=== PATIENT | male | born 1935 | race Caucasian/White ===

== ENCOUNTER 2019-02-01 08:56 | Inpatient (IN) | payer MEDICARE ==
[2019-02-01] MEDS ORDERED: NITROGLYCERIN SL TABS 0.4 MG TAB SUBLINGUAL STA (09:28)
[2019-02-01] MEDS ORDERED: METOCLOPRAMIDE 5 MG/ML 2 ML VIAL IVP STA (09:28)
[2019-02-01] MEDS ORDERED: GLUCAGON 1 MG/ML VIAL IVP STA (09:29)
[2019-02-01] MEDS ORDERED: DIAZEPAM 5 MG/ML 2 ML INJ IVP STA (09:29)
--- NOTE | 2019-02-01 09:45 | XR ---
EXAMINATION TYPE: XR chest 2V DATE OF EXAM: 02/01/2019 COMPARISON: Chest x-ray December 04, 2015. HISTORY: Epigastric pain. Possible foreign body in esophagus. TECHNIQUE: Frontal and lateral views of the chest are obtained. FINDINGS: There is no new suspicious focal air space opacity, pleural effusion, or pneumothorax seen . Chronic left basilar horizontal opacity favoring scarring. The cardiac silhouette size remains with in normal limits. Some multilevel spurring in the thoracic spine. IMPRESSION: Chronic changes without acute pulmonary process.
--- NOTE | 2019-02-01 09:53 | ED ---
General Adult HPI - General Chief complaint: ENT Stated complaint: Not able swallow Time Seen by Provider: 02/01/19 09:03 Source: patient, RN notes reviewed Mode of arrival: ambulatory Limitations: no limitations - History of Present Illness Initial comments: 83-year-old male with a past medical history of GERD, hypertension, since to the emergency department for dysphagia. Patient states that he has had difficulty swallowing for about 2 years now. States he has been taking Pepcid because of this. However this worsened yesterday. States that since yesterday morning he has been unable to keep down any solids or liquids. States he can drink or have a glass of water and a feeling he gets stuck at the bottom of his esophagus. States that after a few minutes it all comes back up. Patient is unsure if there is a piece of food stuck in his throat. Patient does not remember getting a piece stuck in his throat. Pt denies any chest or abdominal pain. Denies nausea.Patient has no other complaints at this time including shortness of breath, chest pain, abdominal pain, nausea or vomiting, headache, or visual changes. - Related Data Home Medications Medication Instructions Recorded Confirmed Aspirin [Adult Low Dose Aspirin EC] 81 mg PO DAILY 12/03/15 02/01/19 Enalapril/Hydrochlorothiazide 1 tab PO QAM 12/03/15 02/01/19 [Vaseretic 10-25 mg] Multivitamins, Thera [Multivitamin] 1 tab PO DAILY 12/03/15 02/01/19 Primidone [Mysoline] 50 mg PO BID 12/03/15 02/01/19 Tamsulosin HCl [Flomax] 0.4 mg PO BID 12/03/15 02/01/19 Ranitidine HCl 300 mg PO HS 02/01/19 02/01/19 Allergies Allergy/AdvReac Type Severity Reaction Status Date / Time No Known Allergies Allergy Verified 02/01/19 11:20 Review of Systems ROS Statement: Those systems with pertinent positive or pertinent negative responses have been documented in the HPI. ROS Other: All systems not noted in ROS Statement are negative. Past Medical History Past Medical History: GERD/Reflux, Hypertension, Prostate Disorder Additional Past Medical History / Comment(s): TREMORS, HAND History of Any Multi-Drug Resistant Organisms: None Reported Past Surgical History: Joint Replacement Additional Past Surgical History / Comment(s): RIGHT TOTAL KNEE. BILATERAL CATARACTS, 10-5-16 LUMBAR LAMINECTOMY Past Anesthesia/Blood Transfusion Reactions: No Reported Reaction Past Psychological History: No Psychological Hx Reported Smoking Status: Never smoker Past Alcohol Use History: None Reported Past Drug Use History: None Reported - Past Family History Brother(s) Family Medical History: Cancer Father Family Medical History: Myocardial Infarction ([place]) Additional Family Medical History / Comment(s): AT AGE 53YR. Mother Additional Family Medical History / Comment(s): MOM WAS HEALTHY LIVED TILL AGE 99- FELL BROKE A HIP AND [place]ENT [place] . General Exam Limitations: no limitations General appearance: alert, in no apparent distress Head exam: Present: atraumatic, normocephalic, normal inspection Eye exam: Present: normal appearance, PERRL, EOMI. Absent: scleral icterus, conjunctival injection, periorbital swelling ENT exam: Present: normal exam, normal oropharynx (uvula midline, no evidence of FB in oropharynx), mucous membranes moist, TM's normal bilaterally, normal external ear exam Neck exam: Present: normal inspection, full ROM. Absent: tenderness, meningismus, lymphadenopathy Respiratory exam: Present: normal lung sounds bilaterally. Absent: respiratory distress, wheezes, rales, rhonchi, stridor Cardiovascular Exam: Present: regular rate, normal rhythm, normal heart sounds. Absent: systolic murmur, diastolic murmur, rubs, gallop, clicks GI/Abdominal exam: Present: soft, normal bowel sounds. Absent: distended, tenderness, guarding, rebound, rigid Course Vital Signs 02/01/19 08:57 Temperature 98.2 F Pulse Rate 72 Respiratory 16 Rate Blood Pressure 192/86 O2 Sat by Pulse 97 Oximetry Medical Decision Making - Medical Decision Making Chest x-ray shows chronic changes without acute pulmonary process.Patient was given sublingual nitro, Valium, glucagon, and Reglan. We then attempted to have him drink water again however he regurgitated this. It is unclear at this time this is an acute on chronic problem or if there is a food bolus. Patient would benefit from GI consult for possible EGD. patient will be admitted with GI consult and IV fluids. Case was discussed with Dr. Alejandro who recommends nothing by mouth, Protonix - Lab Data Result diagrams: 02/01/19 10:14 02/01/19 10:14 Lab Results 02/01/19 02/01/19 Range/Units 10:14 10:14 WBC 9.3 (3.8-10.6) k/uL RBC 5.26 (4.30-5.90) m/uL Hgb 16.4 (13.0-17.5) gm/dL Hct 48.1 (39.0-53.0) % MCV 91.5 (80.0-100.0) fL MCH 31.3 (25.0-35.0) pg MCHC 34.2 (31.0-37.0) g/dL RDW 12.0 (11.5-15.5) % Plt Count 274 (150-450) k/uL Neutrophils % 72 % Lymphocytes % 19 % Monocytes % 5 % Eosinophils % 1 % Basophils % 0 % Neutrophils # 6.7 (1.3-7.7) k/uL Lymphocytes # 1.8 (1.0-4.8) k/uL Monocytes # 0.5 (0-1.0) k/uL Eosinophils # 0.1 (0-0.7) k/uL Basophils # 0.0 (0-0.2) k/uL Sodium 140 (137-145) mmol/L Potassium 3.7 (3.5-5.1) mmol/L Chloride 101 (98-107) mmol/L Carbon Dioxide 28 (22-30) mmol/L Anion Gap 11 mmol/L BUN 22 H (9-20) mg/dL Creatinine 1.29 H (0.66-1.25) mg/dL Est GFR (CKD-EPI)AfAm 60 (>60 ml/min/1.73 sqM) Est GFR (CKD-EPI)NonAf 52 (>60 ml/min/1.73 sqM) Glucose 104 H (74-99) mg/dL Calcium 9.8 (8.4-10.2) mg/dL Total Bilirubin 0.9 (0.2-1.3) mg/dL AST 25 (17-59) U/L ALT 26 (21-72) U/L Alkaline Phosphatase 60 (38-126) U/L Total Protein 7.7 (6.3-8.2) g/dL Albumin 4.7 (3.5-5.0) g/dL Disposition Clinical Impression: Dysphagia Disposition: ADMITTED IP TO THIS HOSP Condition: Fair Is patient prescribed a controlled substance at d/c from ED?: No Referrals: Patience Mitchell MD [Primary Care Provider] - 1-2 days Time of Disposition: 11:39
[2019-02-01 10:23] LABS: Basophils % (A) 0 %; Eosinophils # (A) 0.1 k/uL (0-0.7); Eosinophils % (A) 1 %; HCT 48.1 % (39.0-53.0); HGB 16.4 gm/dL (13.0-17.5); Lymphocytes # (A) 1.8 k/uL (1.0-4.8); Lymphocytes % (A) 19 %; MCH 31.3 pg (25.0-35.0); MCHC 34.2 g/dL (31.0-37.0); MCV 91.5 fL (80.0-100.0); Monocytes # (A) 0.5 k/uL (0-1.0); Monocytes % (A) 5 %; Neutrophils # (A) 6.7 k/uL (1.3-7.7); Neutrophils % (A) 72 %; Platelet Count 274 k/uL (150-450); RBC 5.26 m/uL (4.30-5.90); WBC 9.3 k/uL (3.8-10.6)
[2019-02-01 10:33] LABS: Albumin 4.7 g/dL (3.5-5.0); Calcium 9.8 mg/dL (8.4-10.2); Potassium 3.7 mmol/L (3.5-5.1); Total Bilirubin 0.9 mg/dL (0.2-1.3); Total Protein 7.7 g/dL (6.3-8.2)
[2019-02-01] MEDS ORDERED: NALOXONE 0.4 MG/ML 1 ML VIAL IV PRN (11:58)
[2019-02-01] MEDS ORDERED: PANTOPRAZOLE 40 MG/10 ML VIAL IVP STA (11:59)
--- NOTE | 2019-02-01 12:25 | P.HPIM ---
History of Present Illness H&P Date: 02/01/19 Chief Complaint: Dysphagia This is an 83-year-old male patient of Dr. Mitchell.. Patient presented with complaints of dysphagia and trouble swallowing. Patient reports that he's been having this issue for over 2 years which at times he would have trouble swallowing was would resolve. Patient reports that yesterday he was carving turkey and took a couple small plates and was unable to swallow water and a feeling that food got stuck. Patient denies coughing. Patient does have a past medical history of prostate cancer in which he follows with urology services, GERD, hypertension and joint replacement. Chest x-ray was completed showing chronic changes without acute pulmonary process. At this time patient will be made nothing by mouth GI services consulted for meds on hold. Review of Systems Please refer to HPI otherwise unremarkable Past Medical History Past Medical History: GERD/Reflux, Hypertension, Prostate Disorder Additional Past Medical History / Comment(s): TREMORS, HAND History of Any Multi-Drug Resistant Organisms: None Reported Past Surgical History: Joint Replacement Additional Past Surgical History / Comment(s): RIGHT TOTAL KNEE. BILATERAL CATARACTS, 10--16 LUMBAR LAMINECTOMY Past Anesthesia/Blood Transfusion Reactions: No Reported Reaction Past Psychological History: No Psychological Hx Reported Smoking Status: Never smoker Past Alcohol Use History: None Reported Past Drug Use History: None Reported - Past Family History Brother(s) Family Medical History: Cancer Father Family Medical History: Myocardial Infarction ([place]) Additional Family Medical History / Comment(s): AT AGE 53YR. Mother Additional Family Medical History / Comment(s): MOM WAS HEALTHY LIVED TILL AGE 99- FELL BROKE A HIP AND [place] . Medications and Allergies Home Medications Medication Instructions Recorded Confirmed Type Aspirin [Adult Low Dose Aspirin EC] 81 mg PO DAILY 12/03/15 02/01/19 History Enalapril/Hydrochlorothiazide 1 tab PO QAM 12/03/15 02/01/19 History [Vaseretic 10-25 mg] Multivitamins, Thera [Multivitamin] 1 tab PO DAILY 12/03/15 02/01/19 History Primidone [Mysoline] 50 mg PO BID 12/03/15 02/01/19 History Tamsulosin HCl [Flomax] 0.4 mg PO BID 12/03/15 02/01/19 History Ranitidine HCl 300 mg PO HS 02/01/19 02/01/19 History Allergies Allergy/AdvReac Type Severity Reaction Status Date / Time No Known Allergies Allergy Verified 02/01/19 11:20 Physical Exam Vitals: Vital Signs Temp Pulse Resp BP Pulse Ox 02/01/19 08:57 98.2 F 72 16 192/86 97 Intake and Output 01/31/19 02/01/19 02/01/19 22:59 06:59 14:59 Other: Weight 81.647 kg Head normocephalic Neck supple Lungs clear to auscultation bilaterally no wheezing or crackles Heart regular rate and rhythm S1-S2, no rub or gallop Abdomen is soft nontender nondistended positive bowel sounds no hepatosplenomegaly Extremities no edema Neuro alert and orientated to 3 Results CBC & Chem 7: 02/01/19 10:14 02/01/19 10:14 Labs: Abnormal Lab Results - Last 24 Hours (Table) 02/01/19 Range/Units 10:14 BUN 22 H (9-20) mg/dL Creatinine 1.29 H (0.66-1.25) mg/dL Glucose 104 H (74-99) mg/dL Assessment and Plan Assessment: 1. Dysphagia. Patient made nothing by mouth. GI service is consulted. Chest x-ray completed showing chronic changes without acute pulmonary process 2. History of essential hypertension. Home is on hold due to dysphagia. Hydralazine when necessary has been added 3. History of prostate cancer. Patient follows with urology services 4. History of bilateral knee replacement 5. History of lumbar laminectomy 6. History of GERD DVT prophylaxis heparin. GI prophylaxis Protonix Time with Patient: Greater than 30 (Greater than 60% of the total time spent in counseling and coordination of care. I performed an examination of the patient and discussed their management with the Nurse Practitioner. I have reviewed the Nurse Practitioner's notes and agree with the documented findings and plan of care)
[2019-02-01] MEDS: SODIUM CHLORIDE 0.9% 1,000 ML IV SCH ×2 (12:57→20:21)
[2019-02-01] MEDS: HEPARIN SODIUM,PORCINE 5,000 UNIT/ML 1 ML VIAL SQ SCH (20:21)
[2019-02-02 07:06] LABS: Basophils % (A) 0 %; Eosinophils # (A) 0.1 k/uL (0-0.7); Eosinophils % (A) 1 %; HCT 42.5 % (39.0-53.0); HGB 14.4 gm/dL (13.0-17.5); Lymphocytes # (A) 1.4 k/uL (1.0-4.8); Lymphocytes % (A) 15 %; MCH 31.6 pg (25.0-35.0); MCHC 33.9 g/dL (31.0-37.0); MCV 93.2 fL (80.0-100.0); Mean Platelet Volume 7.1; Monocytes # (A) 0.5 k/uL (0-1.0); Monocytes % (A) 6 %; Neutrophils # (A) 6.7 k/uL (1.3-7.7); Neutrophils % (A) 75 %; Platelet Count 229 k/uL (150-450); RBC 4.56 m/uL (4.30-5.90); RDW 12.2 % (11.5-15.5)
[2019-02-02 07:23] LABS: Albumin 3.4 g/dL (3.5-5.0); Calcium 8.4 mg/dL (8.4-10.2); Potassium 3.5 mmol/L (3.5-5.1); Total Bilirubin 0.9 mg/dL (0.2-1.3); Total Protein 5.8 g/dL (6.3-8.2)
[2019-02-02] MEDS: HEPARIN SODIUM,PORCINE 5,000 UNIT/ML 1 ML VIAL SQ SCH ×2 (08:21→20:51)
[2019-02-02] MEDS: SODIUM CHLORIDE 0.9% 1,000 ML IV SCH ×2 (08:22→20:54)
[2019-02-02] MEDS ORDERED: PANTOPRAZOLE 40 MG/10 ML VIAL IVP SCH (09:00)
--- NOTE | 2019-02-02 09:44 | P.PN ---
Subjective Progress Note Date: 02/02/19 Principal diagnosis: Dysphagia acute on chronic, hypertension hypertensive cardiovascular disease, prostate cancer, degenerative joint disease osteoarthritis, GERD 02/02/2019, patient seen and evaluated examined during the rounds, still have ongoing dysphagia, GI services has been consulted, patient is on Protonix, blood pressure is stable, oxygen saturation 94% room air Objective - Vital Signs Vital signs: Vital Signs Temp 97.8 F 02/02/19 07:00 Pulse 63 02/02/19 07:00 Resp 16 02/02/19 07:00 BP 147/77 02/02/19 07:00 Pulse Ox 94 L 02/02/19 07:00 Intake & Output 02/01/19 02/02/19 02/02/19 18:59 06:59 18:59 Weight 81.647 kg Other: Voiding Method Toilet Toilet # Voids 1 - Constitutional General appearance: Present: average body habitus, cooperative, disheveled, no acute distress - EENT Eyes: Present: EOMI, PERRLA, poor dentition ENT: Present: normal oropharynx Ears: bilateral: normal - Neck Neck: Present: normal ROM Carotids: bilateral: upstroke normal Thyroid: bilateral: normal size - Respiratory Respiratory: bilateral: CTA - Cardiovascular Rhythm: regular Heart sounds: normal: S1, S2 - Gastrointestinal General gastrointestinal: Present: decreased bowel sounds, normal bowel sounds, soft - Neurologic Neurologic: Present: CNII-XII intact - Musculoskeletal Musculoskeletal: Present: gait normal, generalized weakness, strength equal bilaterally - Psychiatric Psychiatric: Present: A&O x's 3, appropriate affect, intact judgment & insight - Labs CBC & Chem 7: 02/02/19 06:33 02/02/19 06:33 Labs: Abnormal Lab Results - Last 24 Hours (Table) 02/01/19 02/02/19 Range/Units 10:14 06:33 Chloride 108 H (98-107) mmol/L BUN 22 H (9-20) mg/dL Creatinine 1.29 H (0.66-1.25) mg/dL Glucose 104 H (74-99) mg/dL Total Protein 5.8 L (6.3-8.2) g/dL Albumin 3.4 L (3.5-5.0) g/dL Assessment and Plan Assessment: Dysphagia Hypertension Prostate cancer Osteoarthritis status post lumbar leg laminectomy and bilateral knee arthroplasty GERD Plan: Continue gentle rehydration Continue Protonix Awaiting evaluation by GI services, patient probably will be having endoscopy We'll follow closely clinical course, labs are pending Time with Patient: Greater than 30
[2019-02-02] MEDS: hydrALAZINE HCL 20 MG/ML 1 ML VIAL IVP PRN (14:02)
--- NOTE | 2019-02-02 23:03 | P.CONS ---
History of Present Illness - Reason for Consult Consult date: 02/02/19 Dysphagia Requesting physician: Lana Alejandro - Chief Complaint Difficulty swallowing - History of Present Illness 83-year-old male with a past medical history significant for prostate cancer, reflux disease, and hypertension who presented to the hospital with concerns over difficulty swallowing. The patient reports that his symptoms have been chronic over the past 2 years. He reports intermittent episodes of dysphagia both to solids and liquids where he has problems swallowing. Currently he feels that symptoms are occurring approximately every 2-3 weeks that this is more frequent than previously. He is currently on treatment with ranitidine 300 mg at night. She denies frequent reflux and states that his predominant symptoms are that of dysphagia. No prior EGD or colonoscopy reported. Currently he is reporting that he is feeling somewhat improved and able to tolerate his secretions. Review of Systems REVIEW OF SYSTEMS: CONSTITUTIONAL: Denies any fevers, chills, weight change or fatigue. CARDIOVASCULAR: Denies any chest pain, palpitations high or low blood pressures RESPIRATORY: Denies any shortness of breath, hemoptysis or cough. GENITOURINARY: No dysuria or hematuria. MUSCULOSKELETAL: No weakness reported. SKIN: Denies any new rashes or lesions, jaundice or pallor. PSYCHIATRIC: Denies any depression or anxiety. NEUROLOGY: Denies headache, denies any new focal deficits. EARS/NOSE/THROAT: No recent hearing change, congestion, nasal discharge or sore throat. EYES: No pain in eyes, discharge or change in vision. GASTROINTESTINAL: As per HPI. 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 History of Any Multi-Drug Resistant Organisms: None Reported Past Surgical History: Back Surgery, Joint Replacement, Orthopedic Surgery Additional Past Surgical History / Comment(s): R total knee arthroplasty, L5 lumbar laminectomy/discectomy, skin cancer removed R cheondoism area, bilateral cataract removals/lens implants. Past Anesthesia/Blood Transfusion Reactions: No Reported Reaction Smoking Status: Never smoker - Past Family History Brother(s) Family Medical History: Cancer Father Family Medical History: Myocardial Infarction ([place]) Additional Family Medical History / Comment(s): AT AGE 53YR from a [place]. Mother Additional Family Medical History / Comment(s): MOM WAS HEALTHY LIVED TILL AGE 99- FELL BROKE A HIP AND [place] . Medications and Allergies Home Medications Medication Instructions Recorded Confirmed Type Aspirin [Adult Low Dose Aspirin EC] 81 mg PO DAILY 12/03/15 02/01/19 History Enalapril/Hydrochlorothiazide 1 tab PO QAM 12/03/15 02/01/19 History [Vaseretic 10-25 mg] Multivitamins, Thera [Multivitamin] 1 tab PO DAILY 12/03/15 02/01/19 History Primidone [Mysoline] 50 mg PO BID 12/03/15 02/01/19 History Tamsulosin HCl [Flomax] 0.4 mg PO BID 12/03/15 02/01/19 History Ranitidine HCl 300 mg PO HS 02/01/19 02/01/19 History Allergies Allergy/AdvReac Type Severity Reaction Status Date / Time No Known Allergies Allergy Verified 02/01/19 11:20 Physical Exam Vitals: Vital Signs Temp Pulse Resp BP Pulse Ox 02/02/19 19:45 16 02/02/19 18:45 97.5 F L 77 166/73 95 02/02/19 14:30 97.6 F 68 16 176/76 96 02/02/19 07:00 97.8 F 63 16 147/77 94 L 02/02/19 01:03 97.8 F 16 116/61 95 02/02/19 00:15 16 Intake and Output 02/02/19 02/02/19 02/02/19 06:59 14:59 22:59 Intake Total 600 Balance 600 Intake: Intake, IV Titration 600 Amount Sodium Chloride 0.9% 1, 600 000 ml @ 100 mls/hr IV . Q10H [facility] Rx#:[id number] Other: Voiding Method Toilet Toilet # Voids 1 3 On physical examination, patient appears comfortable in no apparent distress. HEAD: Normocephalic, atraumatic. EYES: No scleral icterus. No conjunctival injection. MOUTH: No lesions, tongue midline. NECK: Trachea midline, no gross abnormalities. CHEST: Clear to auscultation with no wheezing or rhonchi appreciated. HEART: S1-S2 appreciated, no murmurs appreciated. ABDOMEN: Soft. Bowel sounds are positive. No organomegaly. No guarding or rigidity. EXTREMITIES: No pedal edema. SKIN: No rashes, no jaundice. NEUROLOGIC: Alert and oriented x3. No focal deficits. Results CBC & Chem 7: 02/02/19 06:33 02/02/19 06:33 Labs: Abnormal Lab Results - Last 24 Hours (Table) 02/02/19 Range/Units 06:33 Chloride 108 H (98-107) mmol/L Total Protein 5.8 L (6.3-8.2) g/dL Albumin 3.4 L (3.5-5.0) g/dL Chest x-ray: report reviewed (Chronic changes without any acute process seen on chest x-ray.) Assessment and Plan (1) Dysphagia Narrative/Plan: A 3-year-old male who presents with reports of intermittent dysphagia to both solids and liquids over the past 2 years which has increased in frequency. Unknown etiology may represent esophagitis, stricture, motility issue or other etiology. Current Visit: Yes Status: Acute Code(s): R13.10 - DYSPHAGIA, UNSPECIFIED SNOMED Code(s): 11208992 (2) GERD (gastroesophageal reflux disease) Current Visit: Yes Status: Acute Code(s): K21.9 - GASTRO-ESOPHAGEAL REFLUX DISEASE WITHOUT ESOPHAGITIS SNOMED Code(s): 656325426 Plan: Supportive care Clear liquid diet Nothing by mouth after midnight Plan for EGD tomorrow Protonix increased to 40 mg twice a day Continue to monitor her symptomatically Other medical management per primary team Thank you for allowing us to participate in the care of this patient we will continue to follow
[2019-02-03] MEDS: SODIUM CHLORIDE 0.9% 1,000 ML IV SCH ×3 (03:05→20:48)
[2019-02-03 07:44] LABS: Basophils % (A) 0 %; Eosinophils # (A) 0.1 k/uL (0-0.7); Eosinophils % (A) 1 %; HCT 42.9 % (39.0-53.0); HGB 14.4 gm/dL (13.0-17.5); Lymphocytes # (A) 1.3 k/uL (1.0-4.8); Lymphocytes % (A) 17 %; MCH 31.2 pg (25.0-35.0); MCHC 33.6 g/dL (31.0-37.0); MCV 92.7 fL (80.0-100.0); Mean Platelet Volume 7.2; Monocytes # (A) 0.5 k/uL (0-1.0); Monocytes % (A) 6 %; Neutrophils # (A) 5.4 k/uL (1.3-7.7); Neutrophils % (A) 72 %; Platelet Count 251 k/uL (150-450); RBC 4.63 m/uL (4.30-5.90); WBC 7.5 k/uL (3.8-10.6)
[2019-02-03 07:52] LABS: Albumin 3.6 g/dL (3.5-5.0); Calcium 8.5 mg/dL (8.4-10.2); Potassium 3.4 mmol/L (3.5-5.1); Total Bilirubin 1.1 mg/dL (0.2-1.3); Total Protein 6.1 g/dL (6.3-8.2)
[2019-02-03] MEDS: HEPARIN SODIUM,PORCINE 5,000 UNIT/ML 1 ML VIAL SQ SCH ×2 (07:59→19:34)
[2019-02-03] MEDS: hydrALAZINE HCL 20 MG/ML 1 ML VIAL IVP PRN (08:01)
[2019-02-03] MEDS ORDERED: PROPOFOL 10 MG/ML 20 ML VIAL IV ONE (08:49)
[2019-02-03] MEDS ORDERED: IV FLUID CONTINUATION 1,000 ML IV ONE (08:50)
[2019-02-03] MEDS ORDERED: PANTOPRAZOLE 40 MG/10 ML VIAL IVP SCH (09:00)
--- NOTE | 2019-02-03 09:16 | P.PCN ---
Date of Procedure: 02/03/19 Description of Procedure: BRIEF HISTORY: 83-year-old male with a past medical history significant for prostate cancer, reflux disease, and hypertension who presented to the hospital with concerns over difficulty swallowing. The patient reports that his symptoms have been chronic over the past 2 years. He reports intermittent episodes of dysphagia both to solids and liquids where he has problems swallowing. Currently he feels that symptoms are occurring approximately every 2-3 weeks that this is more frequent than previously. He is currently on treatment with ranitidine 300 mg at night. She denies frequent reflux and states that his predominant symptoms are that of dysphagia. No prior EGD or colonoscopy reported. Currently he is reporting that he is feeling somewhat improved and able to tolerate his secretions. PROCEDURE PERFORMED: Esophagogastroduodenoscopy with biopsy. PREOPERATIVE DIAGNOSIS: Esophageal dysphagia. ESTIMATED BLOOD LOSS: Minimal. IV sedation per anesthesia. PROCEDURE: After informed consent was obtained, the patient was brought into the endoscopy unit. IV sedation was administered by Anesthesia under continuous monitoring. Initially the Olympus GIF-190 video endoscope was inserted into the mouth. Esophagus intubated without any difficulty. It was gradually advanced into the stomach and duodenum and carefully examined. The bulb and the second part of the duodenum appeared normal, with biopsies taken. The scope at this time was withdrawn to the stomach, adequately insufflated with air, and upon careful examination, mucosa of the antrum, body, cardia and the fundus appeared normal, except for some mild scattered punctate erythema in the antrum and body suggestive of mild gastritis with biopsies of the antrum and body taken. The scope was then withdrawn into the esophagus. The GE junction was located at 42 cm from the incisors with minimal erythematous irritation in the distal esophagus consistent with LA grade a distal esophagitis with biopsies of the GE junction taken. The esophagus otherwise appeared normal with mid esophageal biopsies taken to rule out eosinophilic esophagitis. There were no erosions or ulcerations seen and the patient tolerated the procedure well. IMPRESSION: 1. Mild gastritis antrum and body, biopsied. 2. LA grade a distal esophagitis, biopsies of the GE junction taken. 3. Biopsies of the duodenum and midesophagus. RECOMMENDATIONS: The findings of this examination were discussed with the patient. Okay to resume diet. Okay to resume medications. Would recommend discharging patient on a trial of twice daily PPI therapy. If patient continues to have symptoms would recommend outpatient follow-up for esophageal manometry. Otherwise patient is okay from gastroenterology standpoint for discharge.
--- NOTE | 2019-02-03 09:52 | P.PN ---
Subjective Progress Note Date: 02/03/19 Principal diagnosis: Dysphagia acute on chronic, hypertension hypertensive cardiovascular disease, prostate cancer, degenerative joint disease osteoarthritis, GERD 02/03/2019, patient seen eval examined during the rounds he is nothing by mouth for the procedure endoscopy, dysphagia appears to have improved patient able to swallow liquids now at the time of dictation endoscopy was finished some gastritis and esophagitis were noted biopsies were obtained 02/02/2019, patient seen and evaluated examined during the rounds, still have ongoing dysphagia, GI services has been consulted, patient is on Protonix, blood pressure is stable, oxygen saturation 94% room air Objective - Vital Signs Vital signs: Vital Signs Temp 98.5 F 02/03/19 09:22 Pulse 75 02/03/19 09:22 Resp 16 02/03/19 09:22 BP 163/74 02/03/19 09:22 Pulse Ox 96 02/03/19 09:22 Intake & Output 02/02/19 02/03/19 02/03/19 18:59 06:59 18:59 Intake Total 600 50 Balance 600 50 Intake: IV 50 Intake, IV Titration 600 Amount Sodium Chloride 0.9% 1, 600 000 ml @ 100 mls/hr IV . Q10H [facility] Rx#:[id number] Other: Voiding Method Toilet # Voids 3 1 - Exam - Constitutional General appearance: Present: average body habitus, cooperative, disheveled, no acute distress - EENT Eyes: Present: EOMI, PERRLA, poor dentition ENT: Present: normal oropharynx Ears: bilateral: normal - Neck Neck: Present: normal ROM Carotids: bilateral: upstroke normal Thyroid: bilateral: normal size - Respiratory Respiratory: bilateral: CTA - Cardiovascular Rhythm: regular Heart sounds: normal: S1, S2 - Gastrointestinal General gastrointestinal: Present: decreased bowel sounds, normal bowel sounds, soft - Neurologic Neurologic: Present: CNII-XII intact - Musculoskeletal Musculoskeletal: Present: gait normal, generalized weakness, strength equal bilaterally - Psychiatric Psychiatric: Present: A&O x's 3, appropriate affect, intact judgment & insight - Labs CBC & Chem 7: 02/03/19 06:29 02/03/19 06:29 Labs: Abnormal Lab Results - Last 24 Hours (Table) 02/03/19 Range/Units 06:29 Potassium 3.4 L (3.5-5.1) mmol/L Chloride 109 H (98-107) mmol/L Total Protein 6.1 L (6.3-8.2) g/dL Assessment and Plan Assessment: Dysphagia Hypertension Prostate cancer Osteoarthritis status post lumbar leg laminectomy and bilateral knee arthro plasty GERD Plan: Status post endoscopy and biopsy of esophagus and stomach results pending Continue gentle rehydration Continue Protonix Awaiting evaluation by GI services, patient probably will be having endoscopy We'll follow closely clinical course, labs are pending On clear liquid diet and advance as tolerated as per GI If remains stable possible discharge in next 24-48 hours Time with Patient: Greater than 30
[2019-02-03] MEDS: PANTOPRAZOLE 40 MG TABLET PO SCH (16:54)
[2019-02-04 07:00] LABS: Basophils % (A) 1 %; Eosinophils # (A) 0.2 k/uL (0-0.7); Eosinophils % (A) 2 %; HCT 41.9 % (39.0-53.0); HGB 14.4 gm/dL (13.0-17.5); Lymphocytes # (A) 1.5 k/uL (1.0-4.8); Lymphocytes % (A) 20 %; MCH 31.6 pg (25.0-35.0); MCHC 34.4 g/dL (31.0-37.0); MCV 91.9 fL (80.0-100.0); Monocytes # (A) 0.5 k/uL (0-1.0); Monocytes % (A) 6 %; Neutrophils # (A) 5.1 k/uL (1.3-7.7); Neutrophils % (A) 68 %; Platelet Count 235 k/uL (150-450); RBC 4.56 m/uL (4.30-5.90); RDW 12.1 % (11.5-15.5); WBC 7.5 k/uL (3.8-10.6)
[2019-02-04] MEDS: PANTOPRAZOLE 40 MG TABLET PO SCH (07:25)
[2019-02-04] MEDS: HEPARIN SODIUM,PORCINE 5,000 UNIT/ML 1 ML VIAL SQ SCH (07:25)
[2019-02-04] MEDS: SODIUM CHLORIDE 0.9% 1,000 ML IV SCH (07:27)
[2019-02-04 07:36] LABS: Albumin 3.6 g/dL (3.5-5.0); Calcium 8.9 mg/dL (8.4-10.2); Potassium 3.5 mmol/L (3.5-5.1); Total Protein 6.1 g/dL (6.3-8.2)
[2019-02-04 08:12] VITALS: BP 176/75; PULSE 96; RESP 18; TEMP 98.2
[2019-02-04] MEDS ORDERED: LISINOPRIL-HCTZ 20-25 MG 1 EACH TAB PO SCH (09:00)
[2019-02-04] MEDS ORDERED: TAMSULOSIN 0.4 MG CAP.ER.24H PO SCH (09:00)
--- NOTE | 2019-02-04 10:41 | P.DS ---
Providers Date of admission: 02/03/19 13:37 Expected date of discharge: 02/04/19 Attending physician: Lana Alejandro Consults: 02/01/19 11:58 Consult Physician Routine Consulting Provider: Joce Manuel Reason/Comments: dysphagia Do you want consulting provider notified?: Yes Primary care physician: Patience Mtichell Hospital Course: Discharge diagnosis 1. Dysphagia. Patient made nothing by mouth. GI service is consulted. Chest x-ray completed showing chronic changes without acute pulmonary process. Status post EGD with GI services showing mild gastritis antrum and body biopsy. LA grade a distal esophagitis biopsy GI junction taken biopsies of the duodenal and mid esophagus. Patient has been cleared for discharge from GI services okay to resume diet patient has been tolerating regular diet patient will be discharged on Protonix twice daily. If patient continues to have symptoms and recommended outpatient follow-up for esophageal manometry 2. History of essential hypertension. Home is on hold due to dysphagia. Hydralazine when necessary has been added 3. History of prostate cancer. Patient follows with urology services 4. History of bilateral knee replacement 5. History of lumbar laminectomy 6. History of GERD 7. Acute kidney injury secondary to dehydration. Continue normal saline at 100. Creatinine slightly elevated 1.29. resolved. Hospital course This is an 83-year-old male patient of Dr. Mitchell.. Patient presented with complaints of dysphagia and trouble swallowing. Patient reports that he's been having this issue for over 2 years which at times he would have trouble swallowing was would resolve. Patient reports that yesterday he was carving turkey and took a couple small plates and was unable to swallow water and a feeling that food got stuck. Patient denies coughing. Patient does have a past medical history of prostate cancer in which he follows with urology services, GERD, hypertension and joint replacement. Chest x-ray was completed showing chronic changes without acute pulmonary process. At this time patient will be made nothing by mouth GI services consulted for meds on hold. 02/02/2019, patient seen and evaluated examined during the rounds, still have ongoing dysphagia, GI services has been consulted, patient is on Protonix, blood pressure is stable, oxygen saturation 94% room air 02/03/2019, patient seen eval examined during the rounds he is nothing by mouth for the procedure endoscopy, dysphagia appears to have improved patient able to swallow liquids now at the time of dictation endoscopy was finished some gastritis and esophagitis were noted biopsies were obtained On 02/04/2019 patient is alert and oriented 3. Patient has been tolerating diet no issues with swallowing. Status post EGD. Per GI services patient to be discharged on Protonix twice daily if patient continues have symptoms recommend further workup outpatient. Acute kidney injury has resolved. At this time patient denies chest pain or shortness of breath. Patient denies nausea vomiting or diarrhea. Patient denies any urinary burning or frequency I performed an examination of the patient and discussed their management with the Nurse Practitioner. I have reviewed the Nurse Practitioner's notes and agree with the documented findings and plan of care Patient Condition at Discharge: Stable Plan - Discharge Summary Discharge Rx Participant: No New Discharge Prescriptions: New Pantoprazole Sodium [Protonix] 40 mg PO BID-W/MEALS #60 tablet. Continue Aspirin [Adult Low Dose Aspirin EC] 81 mg PO DAILY Enalapril/Hydrochlorothiazide [Vaseretic 10-25 mg] 1 tab PO QAM Multivitamins, Thera [Multivitamin (formulary)] 1 tab PO DAILY Primidone [Mysoline] 50 mg PO BID Tamsulosin HCl [Flomax] 0.4 mg PO BID Discontinued Ranitidine HCl 300 mg PO HS Discharge Medication List Aspirin [Adult Low Dose Aspirin EC] 81 mg PO DAILY 12/03/15 [History] Enalapril/Hydrochlorothiazide [Vaseretic 10-25 mg] 1 tab PO QAM 12/03/15 [History] Multivitamins, Thera [Multivitamin (formulary)] 1 tab PO DAILY 12/03/15 [History] Primidone [Mysoline] 50 mg PO BID 12/03/15 [History] Tamsulosin HCl [Flomax] 0.4 mg PO BID 12/03/15 [History] Pantoprazole Sodium [Protonix] 40 mg PO BID-W/MEALS #60 tablet. 02/03/19 [Rx] Follow up Appointment(s)/Referral(s): Patience Mitchell MD [Primary Care Provider] - 1-2 days Joce Manuel MD [STAFF PHYSICIAN] - 1 Week Patient Instructions/Handouts: Gastritis (ED), Esophagitis (ED) Discharge Disposition: HOME SELF-CARE
== END 2019-02-04 11:56 | disposition home or self-care (01) | DRG 392 ==
LOC: EC 08:56 → 4SSUR 12:14 → OBSVTOIN 02-03 13:37
PROVIDERS: ADMIT Internal Medicine; ATTEND Internal Medicine
PROC: 0DB78ZX Excision of Stomach, Pylorus, Via Natural or Artificial Opening Endoscopic, Diagnostic (ICD-10-PCS; 2019-02-03)
PROC: 0DB28ZX Excision of Middle Esophagus, Via Natural or Artificial Opening Endoscopic, Diagnostic (ICD-10-PCS; 2019-02-03)
PROC: 0DB48ZX Excision of Esophagogastric Junction, Via Natural or Artificial Opening Endoscopic, Diagnostic (ICD-10-PCS; 2019-02-03)
PROC: 0DB98ZX Excision of Duodenum, Via Natural or Artificial Opening Endoscopic, Diagnostic (ICD-10-PCS; principal; 2019-02-03 11:00)
DX: R13.14 Dysphagia, pharyngoesophageal phase (principal); N17.9 Acute kidney failure, unspecified; C61 Malignant neoplasm of prostate; E86.0 Dehydration; I11.9 Hypertensive heart disease without heart failure; K21.0 Gastro-esophageal reflux disease with esophagitis; K29.70 Gastritis, unspecified, without bleeding; M15.9 Polyosteoarthritis, unspecified; N40.0 Benign prostatic hyperplasia without lower urinary tract symptoms; Z79.82 Long term (current) use of aspirin; Z79.899 Other long term (current) drug therapy; Z82.49 Family history of ischemic heart disease and other diseases of the circulatory system; Z85.46 Personal history of malignant neoplasm of prostate; Z85.828 Personal history of other malignant neoplasm of skin; Z98.42 Cataract extraction status, left eye; Z98.41 Cataract extraction status, right eye; Z96.1 Presence of intraocular lens; Z96.653 Presence of artificial knee joint, bilateral; R25.1 Tremor, unspecified; I25.2 Old myocardial infarction
CPT/HCPCS: 36415; 43239; 71046; 80053; 85025; 88305; 88312; 96374; 96375; 99285

== ENCOUNTER → 2020-03-21 | Outpatient (CLI) | payer MEDICARE ==
--- NOTE | 2020-03-22 15:43 | MR ---
EXAMINATION TYPE: MR iac wo/w con DATE OF EXAM: 03/21/2020 COMPARISON: HISTORY: Tinnitus and hearing loss. TECHNIQUE: Multiplanar, multisequence images of the brain and brainstem is performed without and with IV contras t, utilizing 8.5 mL intravenous Gadavist, small ojgbv-cd-imzc high-resolution images obtained through the internal auditory canals . FINDINGS: Diffusion weighted images demonstrate no evidence of a recent infarct or other diffusion ab normality. There is no extra-axial fluid collection, periventricular confluent and scattered subcort ical hyperintensities are present on inversion recovery T2-weighted sequences. The ventricular syste m and cisternal spaces are normal in size and appearance. The brain volume is age appropriate, there is cortical atrophy. Midline structures demonstrate normal morphology. The craniocervical junction appears within normal limits. Post contrast images demonstrate no abnormal enhancement. The dural venous sinuses appear pa tent. The visualized sinuses are clear and the globes are intact. IMPRESSION: Age-related atrophy and chronic small vessel ischemia
== END | disposition home or self-care (01) ==
LOC: RADMRIMAIN 08:10
PROVIDERS: ATTEND Otolaryngology
DX: I67.82 Cerebral ischemia (principal); G31.9 Degenerative disease of nervous system, unspecified; H91.90 Unspecified hearing loss, unspecified ear; H93.19 Tinnitus, unspecified ear
CPT/HCPCS: 70553; A9585

== ENCOUNTER 2020-06-02 08:36 | Day surgery (SDC) | payer MEDICARE ==
[2020-05-29 08:45] VITALS: BMI 29.7
[~2020-06-02 08:36] MED LIST: LACTATED RINGERS 1,000 ML IV SCH; LIDOCAINE 1% (10MG/ML) FOR IV START INTRADERMA PRN
[2020-06-02 09:29] VITALS: TEMP 97.3
[2020-06-02] MEDS ORDERED: LIDOCAINE 1% INJ 10MG/ML (20 ML MDV) ONE (09:55)
[2020-06-02] MEDS ORDERED: PROPOFOL 10 MG/ML 20 ML VIAL IV ONE (09:55)
--- NOTE | 2020-06-02 10:29 | P.PCN ---
Date of Procedure: 06/02/20 Description of Procedure: BRIEF HISTORY: Patient is a 84-year-old male presenting for outpatient esophagogastroduodenoscopy for evaluation of GERD with esophagitis. Patient had been seen in the hospital with complaints of difficulty swallowing. Taken for EGD on 02/01/2019 the patient was found to have mild gastritis, esophagitis. Patient had done well on Protonix therapy but had an ALLERGY to medication. Currently on famotidine therapy. PROCEDURE PERFORMED: Esophagogastroduodenoscopy with biopsy and vcdanop-fow-sptrq balloon dilation of the esophagus. PREOPERATIVE DIAGNOSIS: GERD with esophagitis, esophageal dysphagia. ESTIMATED BLOOD LOSS: Minimal. IV sedation per anesthesia. PROCEDURE: After informed consent was obtained, the patient was brought into the endoscopy unit. IV sedation was administered by Anesthesia under continuous monitoring. Initially the Olympus GIF-190 video endoscope was inserted into the mouth. Esophagus intubated without any difficulty. It was gradually advanced into the stomach and duodenum and carefully examined. The bulb and the second part of the duodenum appeared normal, with biopsies taken. The scope at this time was withdrawn to the stomach, adequately insufflated with air, and upon careful examination, mucosa of the antrum, body, cardia and the fundus appeared normal, with biopsies taken. The scope was then withdrawn into the esophagus. The GE junction was located at 41 cm from the incisors, with a 1 cm hiatal hernia noted and a nonobstructing distal esophageal Schatzki's ring just proximal to the GE junction which was dilated with a ogaavcr-dux-lblcy balloon dilator to 15 mm and then 16.5 mm at which time no further dilation was performed as superficial mucosal tearing was noted. The esophagus appeared normal, with biopsies of the lower esophagus. There were no erosions or ulcerations seen and the patient t olerated the procedure well. IMPRESSION: 1. Nonobstructing distal esophageal Schatzki's ring dilated with ghpkivt-nmt-xdknb balloon dilator. 2. Small hiatal hernia. 3. Biopsies of the duodenum, antrum body and lower esophagus. RECOMMENDATIONS: The findings of this examination were discussed with the patient and his family. Okay to resume diet. Okay to resume medications. Await pathology from biopsies. Follow up in the GI clinic as scheduled. Continue famotidine therapy.
[2020-06-02 10:42] VITALS: BP 146/90; PULSE 65; RESP 18
== END 2020-06-02 11:14 | disposition home or self-care (01) ==
LOC: ORWHC2ENDO 08:36
PROVIDERS: ATTEND Internal Medicine
DX: K22.2 Esophageal obstruction (principal); K44.9 Diaphragmatic hernia without obstruction or gangrene; K21.00 Gastro-esophageal reflux disease with esophagitis, without bleeding; Z98.42 Cataract extraction status, left eye; Z98.41 Cataract extraction status, right eye; I10 Essential (primary) hypertension; Z97.2 Presence of dental prosthetic device (complete) (partial); Z79.82 Long term (current) use of aspirin; Z79.899 Other long term (current) drug therapy; Z88.8 Allergy status to other drugs, medicaments and biological substances
CPT/HCPCS: 88305; 43239; 43249; J2001; J2704; C1726

== ENCOUNTER 2021-07-04 23:19 | Emergency (ER) | payer MEDICARE ==
[2021-07-05] VITALS: TEMP 98.5
[2021-07-05] MEDS ORDERED: SODIUM CHLORIDE 0.9% 500 ML 500 ML IV STA (01:06)
--- NOTE | 2021-07-05 01:38 | XR ---
EXAMINATION TYPE: XR chest 2V DATE OF EXAM: 07/05/2021 COMPARISON: 02/01/2019 HISTORY: Difficulty swallowing TECHNIQUE: 2 views FINDINGS: Heart is normal. There is poor inspiration. Lungs are clear of infiltrate. No heart failure . No pleural effusion. IMPRESSION: Poor inspiration that is decreased compared to old exam. Normal heart.
[2021-07-05 01:43] LABS: Basophils # (A) 0.1 k/uL (0-0.2); Basophils % (A) 1 %; Eosinophils # (A) 0.1 k/uL (0-0.7); Eosinophils % (A) 1 %; HCT 48.9 % (39.0-53.0); Lymphocytes # (A) 1.5 k/uL (1.0-4.8); Lymphocytes % (A) 15 %; MCH 32.6 pg (25.0-35.0); MCHC 34.8 g/dL (31.0-37.0); MCV 93.8 fL (80.0-100.0); Mean Platelet Volume 7.6; Monocytes # (A) 0.5 k/uL (0-1.0); Monocytes % (A) 5 %; Neutrophils # (A) 7.9 k/uL (1.3-7.7); Neutrophils % (A) 76 %; Platelet Count 234 k/uL (150-450); RBC 5.22 m/uL (4.30-5.90); RDW 12.6 % (11.5-15.5); WBC 10.5 k/uL (3.8-10.6)
[2021-07-05] MEDS ORDERED: GLUCAGON 1 MG/ML VIAL IVP STA (01:45)
[2021-07-05] MEDS ORDERED: NITROGLYCERIN SL TABS 0.4 MG TAB SUBLINGUAL STA (01:47)
[2021-07-05 02:05] LABS: Partial Thromboplastin Time 23.9 sec (22.0-30.0); Prothrombin Time 10.5 sec (9.0-12.0)
[2021-07-05 02:42] LABS: Albumin 4.5 g/dL (3.5-5.0); Calcium 9.8 mg/dL (8.4-10.2); Potassium 3.5 mmol/L (3.5-5.1); Total Bilirubin 0.8 mg/dL (0.2-1.3); Total Protein 7.3 g/dL (6.3-8.2)
--- NOTE | 2021-07-05 02:55 | ED ---
ENT HPI - General Chief complaint: ENT Stated complaint: Trouble Swallowing Time Seen by Provider: 07/05/21 01:05 Source: patient, RN notes reviewed Mode of arrival: ambulatory - History of Present Illness Initial comments: This is a pleasant 85-year-old male states he was eating lot worse yesterday morning at about 7 AM. He states that after eating at [employer] or she started having trouble swallowing both liquids and solids. He states he has not been able to swallow even liquids since then. Patient has tried several times and it comes right back up. He denies any significant discomfort. Patient states that this happened previously and had to have his esophagus dilated. This was a few years ago. No headache, no fever or chills, no changes in vision or hearing, no neck pain, no chest pain or shortness of breath, no abdominal pain, no nausea or vomiting, no changes in urination or bowel movements, no numbness or tingling, no extremi ty pain, no skin rashes or lesions. MD complaint: difficulty swallowing - Related Data Home Medications Medication Instructions Recorded Confirmed Aspirin [Adult Low Dose Aspirin EC] 81 mg PO DAILY 12/03/15 06/02/20 Enalapril/Hydrochlorothiazide 1 tab PO QAM 12/03/15 06/02/20 [Vaseretic 10-25 mg] Multivitamins, Thera [Multivitamin 1 tab PO DAILY 12/03/15 06/02/20 (formulary)] Primidone [Mysoline] 50 mg PO BID 12/03/15 06/02/20 Tamsulosin HCl [Flomax] 0.4 mg PO BID 12/03/15 06/02/20 Famotidine [Pepcid] 40 mg PO DAILY 05/29/20 06/02/20 Allergies Allergy/AdvReac Type Severity Reaction Status Date / Time pantoprazole [From Protonix] Allergy Rash/Hives Verified 07/05/21 00:01 Review of Systems ROS Statement: Those systems with pertinent positive or pertinent negative responses have been documented in the HPI. ROS Other: All systems not noted in ROS Statement are negative. 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 deaf left ear, hearing loss right ear History of Any Multi-Drug Resistant Organisms: None Reported Past Surgical History: Back Surgery, Joint Replacement, Orthopedic Surgery Additional Past Surgical History / Comment(s): EGD, R total knee arthroplasty, L5 lumbar laminectomy/discectomy, skin cancer removed R congregational area, bilateral cataract removals/lens implants. Past Anesthesia/Blood Transfusion Reactions: No Reported Reaction Past Psychological History: No Psychological Hx Reported Smoking Status: Never smoker Past Alcohol Use History: None Reported Past Drug Use History: None Reported - Past Family History Brother(s) Family Medical History: Cancer Father Family Medical History: Myocardial Infarction ([place]) Additional Family Medical History / Comment(s): AT AGE 53YR from a [place]. Mother Additional Family Medical History / Comment(s): MOM WAS HEALTHY LIVED TILL AGE 99- FELL BROKE A HIP AND WENT [place] . General Exam General appearance: alert, in no apparent distress Head exam: Present: atraumatic, normocephalic, normal inspection Eye exam: Present: normal appearance, PERRL, EOMI. Absent: scleral icterus, conjunctival injection, periorbital swelling ENT exam: Present: normal exam, normal oropharynx, mucous membranes moist, TM's normal bilaterally. Absent: mucous membranes dry Neck exam: Present: normal inspection. Absent: tenderness, meningismus, lymphadenopathy Respiratory exam: Present: normal lung sounds bilaterally. Absent: respiratory distress, wheezes, rales, rhonchi, stridor Cardiovascular Exam: Present: regular rate, normal rhythm, normal heart sounds. Absent: systolic murmur, diastolic murmur, rubs, gallop, clicks GI/Abdominal exam: Present: soft, normal bowel sounds. Absent: distended, tend erness, guarding, rebound, rigid Extremities exam: Present: normal inspection, full ROM, normal capillary refill. Absent: tenderness, pedal edema, joint swelling, calf tenderness Back exam: Present: normal inspection Neurological exam: Present: alert, oriented X3, CN II-XII intact Psychiatric exam: Present: normal affect, normal mood Skin exam: Present: warm, dry, intact, normal color. Absent: rash Course Vital Signs 07/04/21 23:54 Temperature 98.5 F Pulse Rate 77 Respiratory 19 Rate Blood Pressure 170/99 O2 Sat by Pulse 95 Oximetry Medical Decision Making - Medical Decision Making Glucagon and nitroglycerin were ordered. Medications given and patient was given a carbonated beverage 1 minute later. Patient then was able to swallow without difficulty. Patient drank several glasses of beverages here and was observed. Patient was able eat pudding with no problem. The case was discussed in detail with ED attending physician. Presentation, findings, treatment plan discussed in detail. We'll have the patient here to a soft diet for the next few days. He is to call gastroenterology in the a.m. to schedule follow-up appointment. Treatment plan discussed in detail with the patient. All questions answered. Patient was told to return to the ER for any signs or symptoms worsen. Told to return immediately if any other problems arise. All questions answered. Treatment plan discussed. Patient in agreement Every effort has been made to ensure accuracy of this dictation. However, due to the limitations of electronic medical records and dictation devices, errors in charting still occur. Supervising physicians Dr. Danielle - Lab Data Result diagrams: 07/05/21 01:13 07/05/21 01:13 Lab Results 07/05/21 07/05/21 07/05/21 Range/Units 01:13 01:13 01:13 WBC 10.5 (3.8-10.6) k/uL RBC 5.22 (4.30-5.90) m/uL Hgb 17.0 (13.0-17.5) gm/dL Hct 48.9 (39.0-53.0) % MCV 93.8 (80.0-100.0) fL MCH 32.6 (25.0-35.0) pg MCHC 34.8 (31.0-37.0) g/dL RDW 12.6 (11.5-15.5) % Plt Count 234 (150-450) k/uL MPV 7.6 Neutrophils % 76 % Lymphocytes % 15 % Monocytes % 5 % Eosinophils % 1 % Basophils % 1 % Neutrophils # 7.9 H (1.3-7.7) k/uL Lymphocytes # 1.5 (1.0-4.8) k/uL Monocytes # 0.5 (0-1.0) k/uL Eosinophils # 0.1 (0-0.7) k/uL Basophils # 0.1 (0-0.2) k/uL PT 10.5 (9.0-12.0) sec INR 1.0 (<1.2) APTT 23.9 (22.0-30.0) sec Sodium 138 (137-145) mmol/L Potassium 3.5 (3.5-5.1) mmol/L Chloride 100 (98-107) mmol/L Carbon Dioxide 27 (22-30) mmol/L Anion Gap 11 mmol/L BUN 21 H (9-20) mg/dL Creatinine 1.29 H (0.66-1.25) mg/dL Est GFR (CKD-EPI)AfAm 59 (>60 ml/min/1.73 sqM) Est GFR (CKD-EPI)NonAf 51 (>60 ml/min/1.73 sqM) Glucose 107 H (74-99) mg/dL Calcium 9.8 (8.4-10.2) mg/dL Total Bilirubin 0.8 (0.2-1.3) mg/dL AST 25 (17-59) U/L ALT 26 (4-49) U/L Alkaline Phosphatase 69 (38-126) U/L Total Protein 7.3 (6.3-8.2) g/dL Albumin 4.5 (3.5-5.0) g/dL Lipase 87 (23-300) U/L Disposition Clinical Impression: Food impaction of esophagus Disposition: HOME SELF-CARE Condition: Good Instructions (If sedation given, give patient instructions): Esophageal Foreign Body (ED), Dysphagia (ED) Additional Instructions: Drink plenty of fluids. Soft diet for the next 48 hours. Call your regular physician for follow-up. Call the manager change at 8 or 9 AM in the morning to schedule follow-up appointment. Follow-up with your regular physician as directed. Return to the ER immediately if any symptoms worsen, new symptoms arise, or any other problems develop. Is patient prescribed a controlled substance at d/c from ED?: No Referrals: Patience Mitchell MD [Primary Care Provider] - 1-2 days Hillary Quintero MD [STAFF PHYSICIAN] - 1-2 days Time of Disposition: 02:55
[2021-07-05 03:01] VITALS: BP 142/74; PULSE 76; RESP 18
== END 2021-07-05 03:00 | disposition home or self-care (01) ==
LOC: EC 23:19
DX: T18.128A Food in esophagus causing other injury, initial encounter (principal); I10 Essential (primary) hypertension; K21.9 Gastro-esophageal reflux disease without esophagitis; N40.0 Benign prostatic hyperplasia without lower urinary tract symptoms; M19.90 Unspecified osteoarthritis, unspecified site; Z79.82 Long term (current) use of aspirin; Z79.899 Other long term (current) drug therapy
CPT/HCPCS: 99284 ×2; 96374 ×2; 36415; 80053; 83690; 85025; 85610; 85730; 71046; J1610

== ENCOUNTER 2022-12-22 15:04 | Emergency (ER) | payer MEDICARE ==
--- NOTE | 2022-12-22 15:24 | ED ---
Recheck HPI - General Source: patient, family, RN notes reviewed Mode of arrival: ambulatory Limitations: no limitations <Zane Day - Last Filed: 12/22/22 15:23> - General Source: patient, family, RN notes reviewed, old records reviewed <Andrew Pink - Last Filed: 12/22/22 22:01> - General Chief Complaint: Recheck/Abnormal Lab/Rx Stated Complaint: shakes low bp Time Seen by Provider: 12/22/22 15:23 - History of Present Illness Initial Comments: 87-year-old male presenting with chief complaint of "I feel shaky". Family also reports that his blood pressure was low today. No chest pain or difficulty breathing. No dizziness. (Zane Day) Patient is an 87-year-old male presents emergency department for evaluation. Patient apparently had an episode where his blood pressure went down to systolics of 111 and 1:15 and had total body shakes. This has happened previously and was found about potassium. He did not express any trauma. No chest pain. No shortness of breath. No weakness. No altered mental status. Patient's neck is normal baseline mental status. Has a history of chronic peripheral tremors. Also has a history of hypertension. His PCP has been monitoring his symptoms from this. Family was just concerned and wanted him to be evaluated. He denies any other acute complaints at this time. Denies any other acute complaints during the episode. Was only a temporary episode. Curr ently not experiencing a. Presents for further evaluation. States he was not eating or drinking much today which may have contributed. Patient's blood pressure when he goes to the doctor's is typically systolics in the 130s.Patient originally evaluated as a quick note. (Andrew Pink) - Related Data Home Medications Medication Instructions Recorded Confirmed Aspirin [Adult Low Dose Aspirin EC] 81 mg PO DAILY 12/03/15 07/22/21 Enalapril/Hydrochlorothiazide 1 tab PO QAM 12/03/15 07/22/21 [Vaseretic 10-25 mg] Multivitamins, Thera [Multivitamin 1 tab PO DAILY 12/03/15 07/22/21 (formulary)] Primidone [Mysoline] 50 mg PO BID 12/03/15 07/22/21 Tamsulosin HCl [Flomax] 0.4 mg PO BID 12/03/15 07/22/21 Famotidine [Pepcid] 40 mg PO DAILY 05/29/20 07/22/21 Allergies Allergy/AdvReac Type Severity Reaction Status Date / Time pantoprazole [From Protonix] Allergy Rash/Hives Verified 12/22/22 15:21 Review of Systems ROS Other: All systems not noted in ROS Statement are negative. <Zane Day - Last Filed: 12/22/22 15:23> ROS Other: All systems not noted in ROS Statement are negative. <Andrew Pink - Last Filed: 12/22/22 22:01> ROS Statement: Those systems with pertinent positive or pertinent negative responses have been documented in the HPI. Review of Systems: CONST: Denies fever EYES: Denies blurry vision ENT: Denies nasal congestion C/V: Denies Chest pain RESP: Denies shortness of breath GI: Denies abdominal pain : Denies dysuria SKIN: Denies rash. MSK: Denies joint pain. NEURO: Denies headache (Andrew Pink) Past Medical History Past Medical History: Cancer, GERD/Reflux, Hearing Disorder / Deafness, Hypertension, Osteoarthritis (OA), Prostate Disorder Additional Past Medical History / Comment(s): recently seen in [facility] w/dysphagia, has happened before, BPH, prostate cancer being monitored, arthritis in multiple joints, basal cell skin cancer face, bilateral arm/hand tremors treated with mysoline. deaf left ear, hearing loss right ear History of Any Multi-Drug Resistant Organisms: None Reported Past Surgical History: Back Surgery, Joint Replacement, Orthopedic Surgery Additional Past Surgical History / Comment(s): EGD, R total knee arthroplasty, L5 lumbar laminectomy/discectomy, skin cancer removed R lutheran area, bilateral cataract removals/lens implants. Past Anesthesia/Blood Transfusion Reactions: No Reported Reaction Past Psychological History: No Psychological Hx Reported Smoking Status: Never smoker Past Alcohol Use History: None Reported Past Drug Use History: None Reported - Past Family History Brother(s) Family Medical History: Cancer Father Family Medical History: Myocardial Infarction (PR) Additional Family Medical History / Comment(s): AT AGE 53YR from a PR. Mother Additional Family Medical History / Comment(s): MOM WAS HEALTHY LIVED TILL AGE 99- FELL BROKE A HIP AND WENT [place] . <Zane Day - Last Filed: 12/22/22 15:23> General Exam Limitations: no limitations <Zane Day - Last Filed: 12/22/22 15:23> <Andrew Pink - Last Filed: 12/22/22 22:01> - General Exam Comments Initial Comments: Visual Physical Exam Vital signs reviewed General: Well-appearing, nontoxic, no acute distress. Head: Normocephalic, atraumatic Eyes: PERRLA, EOMI ENT: Airway patent Chest: Nonlabored breathing Skin: No visual rash, normal skin tone Neuro: Alert and oriented 3 Musculoskeletal: No gross abnormalities (Zane Day) General: Appears in no acute distress. HEAD: Normal with no signs of head trauma. EYES: PERRLA, EOMI, conjunctiva normal, no discharge. Pupils are 2 mm and equal bilaterally. ENT: Hearing grossly intact, normal oropharynx. RESPIRATORY: Clear breath sounds bilaterally. No wheezes, rales, or rhonchi. C/V: Regular rate and rhythm. S1 and S2 auscultated, no edema, peripheral pulses 2+ and intact throughout ABD: Abd is soft, nontender, nondistended EXT: Normal range of motion, no obvious deformity SKIN: No rashes or lesions observed on exposed skin. NEURO: Alert and oriented x 4. Cranial nerves II-XII intact. No focal sensory or strength deficits. Patient's baseline tremors which are within normal limits. NIH is 0. GCS is 15. (Andrew Pink) Course Vital Signs 12/22/22 12/22/22 12/22/22 15:18 17:34 19:37 Temperature 98 F 98.8 F Pulse Rate 70 65 Respiratory 16 18 Rate Blood Pressure 145/70 156/70 Blood Pressure 147/76 [Left Arm Sitting] Blood Pressure 147/74 [Left Arm Standing] Blood Pressure 149/71 [Left Arm Supine] O2 Sat by Pulse 95 96 Oximetry Medical Decision Making - Lab Data Result diagrams: 12/22/22 16:06 12/22/22 16:06 - EKG Data -: EKG Interpreted by Pa <Andrew Pink - Last Filed: 12/22/22 22:01> - Medical Decision Making Was pt. sent in by a medical professional or institution (, PA, ACCOUNTING TECHNICIAN, urgent care, hospital, or usp...) When possible be specific @ -No Did you speak to anyone other than the patient for history (EMS, parent, family, police, friend...)? What history was obtained from this source @ -Spoke with patient's and daughter who assists with patient's past medical history. Did you review nursing and triage notes (agree or disagree)? Why? @ -I reviewed and agree with nursing and triage notes Were old charts reviewed (outside hosp., previous admission, EMS record, old EKG, old radiological studies, urgent care reports/EKG's, usp records)? Report findings @ -Old charts reviewed. Differential Diagnosis (chest pain, altered mental status, abdominal pain women, abdominal pain men, vaginal bleeding, weakness, fever, dyspnea, syncope, headache, dizziness, GI bleed, back pain, seizure, CVA, palpatations, mental health, musculoskeletal)? @ -Dehydration, electrolyte abnormality, infection, exacerbation of his baseline tremors. This list is not all inclusive. EKG interpreted by me (3pts min.). @ -As above X-rays interpreted by me (1pt min.). @ -Chest x-ray reveals no obvious acute cardio, process. CT interpreted by me (1pt min.). @ -None done U/S interpreted by me (1pt. min.). @ -None done What testing was considered but not performed or refused? (CT, X-rays, U/S, labs)? Why? @ -None What meds were considered but not given or refused? Why? @ -None Did you discuss the management of the patient with other professionals (professionals i.e. , PA, ACCOUNTING TECHNICIAN, lab, RT, psych nurse, psychologist social, cooling tower operator, teacher, promotion officer, embedded case manager)? Give summary @ -No Was smoking cessation discussed for >3mins.? @ -No Was critical care preformed (if so, how long)? @ -No Were there social determinants of health that impacted care today? How? (Homelessness, low income, unemployed, alcoholism, drug addiction, transportation, low edu. Level, literacy, decrease access to med. care, correction, rehab)? @ -No Was there de-escalation of care discussed even if they declined (Discuss DNR or withdrawal of care, Hospice)? DNR status @ -No What co-morbidities impacted this encounter? (DM, HTN, Smoking, COPD, CAD, Cancer, CVA, ARF, Chemo, Hep., AIDS, mental health diagnosis, sleep apnea, morbid obesity)? @ -None Was patient admitted / discharged? Hospital course, mention meds given and route, prescriptions, significant lab abnormalities, going to OR and other pertinent info. @ -Based on patient's presentation and physical exam, I'm concerned for possible dehydration or infection. The patient. Vital signs within acceptable limits including normal blood pressure. We will IV hydrate the patient with a 1 L fluid bolus and obtain orthostatics in addition to screening EKG, chest x-ray as well as basic labs. He was in agreement this plan. Patient's "hypotensive" episode at home without any significant, his baseline blood pressures run 120 to 130 and his systolic at home was 111 to 115. However we will continue to monitor. EKG showed no signs of acute ischemia.. Chest x-ray unremarkable. Patient's labs are largely within acceptable limits. Slight leukocytosis which is likely reactive. No obvious source of infection. Orthostatic vital signs negative. On reevaluation, patient remains the same. He is asymptomatic. Discussed results. I believe is safe for him to be discharged home with close follow-up with PCP. Family and patient were in agreement this plan. I instructed the patient to follow up with their PCP in the next 1-3 days. I explained that the patient should return to the emergency department if they experience any worsening symptoms. Strict return precautions were discussed with the patient. The patient expressed understanding of these instructions. I answered all questions that the patient had. The patient was discharged home in good condition with their prescriptions and follow up information. Undiagnosed new problem with uncertain prognosis? @ -No Drug Therapy requiring intensive monitoring for toxicity (Heparin, Nitro, Insulin, Cardizem)? @ -No Were any procedures done? @ -No Diagnosis/symptom? @ -Muscle tremors Acute, or Chronic, or Acute on Chronic? @ -Acute and chronic Uncomplicated (without systemic symptoms) or Complicated (systemic symptoms)? @ -Uncomplicated Side effects of treatment? @ -none Exacerbation, Progression, or Severe Exacerbation] @ -no Poses a threat to life or bodily function? @ -no (Andrew Pink) - Lab Data Lab Results 10/19/23 10/19/23 10/19/23 Range/Units 16:06 16:06 16:06 WBC 11.7 H (3.8-10.6) k/uL RBC 4.45 (4.30-5.90) m/uL Hgb 14.1 (13.0-17.5) gm/dL Hct 40.8 (39.0-53.0) % MCV 91.8 (80.0-100.0) fL MCH 31.7 (25.0-35.0) pg MCHC 34.5 (31.0-37.0) g/dL RDW 12.1 (11.5-15.5) % Plt Count 179 (150-450) k/uL MPV 7.8 Neutrophils % 81 % Lymphocytes % 9 % Monocytes % 7 % Eosinophils % 0 % Basophils % 0 % Neutrophils # 9.5 H (1.3-7.7) k/uL Lymphocytes # 1.0 (1.0-4.8) k/uL Monocytes # 0.8 (0-1.0) k/uL Eosinophils # 0.0 (0-0.7) k/uL Basophils # 0.0 (0-0.2) k/uL PT 10.5 (10.0-12.5) sec INR 0.9 (<1.2) APTT 24.6 (22.0-30.0) sec Sodium 133 L (137-145) mmol/L Potassium 3.7 (3.5-5.1) mmol/L Chloride 96 L (98-107) mmol/L Carbon Dioxide 28 (22-30) mmol/L Anion Gap 9 mmol/L BUN 21 H (9-20) mg/dL Creatinine 1.25 (0.66-1.25) mg/dL Est GFR (CKD-EPI)AfAm 61 (>60 ml/min/1.73 sqM) Est GFR (CKD-EPI)NonAf 53 (>60 ml/min/1.73 sqM) Glucose 111 H (74-99) mg/dL Plasma Lactic Acid Terell (0.7-2.0) mmol/L Calcium 8.9 (8.4-10.2) mg/dL Magnesium 1.6 (1.6-2.3) mg/dL Total Bilirubin 0.5 (0.2-1.3) mg/dL AST 40 (17-59) U/L ALT 87 H (4-49) U/L Alkaline Phosphatase 66 (38-126) U/L Total Protein 6.5 (6.3-8.2) g/dL Albumin 3.9 (3.5-5.0) g/dL Urine Color Urine Appearance (Clear) Urine pH (5.0-8.0) Ur Specific Melvin (1.001-1.035) Urine Protein (Negative) Urine Glucose (UA) (Negative) Urine Ketones (Negative) Urine Blood (Negative) Urine Nitrite (Negative) Urine Bilirubin (Negative) Urine Urobilinogen (<2.0) mg/dL Ur Leukocyte Esterase (Negative) Influenza Type A (PCR) (Not Detectd) Influenza Type B (PCR) (Not Detectd) RSV (PCR) (Not Detectd) SARS-CoV-2 (PCR) (Not Detectd) 12/22/22 12/22/22 12/22/22 Range/Units 16:06 16:34 17:55 WBC (3.8-10.6) k/uL RBC (4.30-5.90) m/uL Hgb (13.0-17.5) gm/dL Hct (39.0-53.0) % MCV (80.0-100.0) fL MCH (25.0-35.0) pg MCHC (31.0-37.0) g/dL RDW (11.5-15.5) % Plt Count (150-450) k/uL MPV Neutrophils % % Lymphocytes % % Monocytes % % Eosinophils % % Basophils % % Neutrophils # (1.3-7.7) k/uL Lymphocytes # (1.0-4.8) k/uL Monocytes # (0-1.0) k/uL Eosinophils # (0-0.7) k/uL Basophils # (0-0.2) k/uL PT (10.0-12.5) sec INR (<1.2) APTT (22.0-30.0) sec Sodium (137-145) mmol/L Potassium (3.5-5.1) mmol/L Chloride (98-107) mmol/L Carbon Dioxide (22-30) mmol/L Anion Gap mmol/L BUN (9-20) mg/dL Creatinine (0.66-1.25) mg/dL Est GFR (CKD-EPI)AfAm (>60 ml/min/1.73 sqM) Est GFR (CKD-EPI)NonAf (>60 ml/min/1.73 sqM) Glucose (74-99) mg/dL Plasma Lactic Acid Terell 1.1 (0.7-2.0) mmol/L Calcium (8.4-10.2) mg/dL Magnesium (1.6-2.3) mg/dL Total Bilirubin (0.2-1.3) mg/dL AST (17-59) U/L ALT (4-49) U/L Alkaline Phosphatase (38-126) U/L Total Protein (6.3-8.2) g/dL Albumin (3.5-5.0) g/dL Urine Color Colorless Urine Appearance Clear (Clear) Urine pH 6.0 (5.0-8.0) Ur Specific Melvin 1.009 (1.001-1.035) Urine Protein Negative (Negative) Urine Glucose (UA) Negative (Negative) Urine Ketones Negative (Negative) Urine Blood Negative (Negative) Urine Nitrite Negative (Negative) Urine Bilirubin Negative (Negative) Urine Urobilinogen <2.0 (<2.0) mg/dL Ur Leukocyte Esterase Negative (Negative) Influenza Type A (PCR) Not Detected (Not Detectd) Influenza Type B (PCR) Not Detected (Not Detectd) RSV (PCR) Not Detected (Not Detectd) SARS-CoV-2 (PCR) Not Detected (Not Detectd) - EKG Data EKG Comments: 12-lead Electrocardiogram Interpretation Note EKG was reviewed and interpreted by myself. 12-lead ECG performed at 1601 is interpreted by me as revealing normal sinus rhythm at a rate of 69 beats per minute. Left axis deviation. [place] interval is 287 ms with first-degree AV block, QRS durations 102 ms, QTC is 418 ms.. There were no ST or T wave abnormalities to suggest myocardial ischemia or injury. R wave progression across the precordium was satisfactory. By my interpretation this EKG is non-diagnostic for acute ischemia. (Andrew Pink) Disposition <Zane Day - Last Filed: 12/22/22 15:23> Is patient prescribed a controlled substance at d/c from ED?: No Time of Disposition: 19:00 <Andrew Pink - Last Filed: 12/22/22 22:01> Clinical Impression: Muscle tremor Disposition: HOME SELF-CARE Condition: Good Referrals: Patience Mitchell MD [Primary Care Provider] - 1-2 days
[2022-12-22] MEDS ORDERED: SODIUM CHLORIDE 0.9% 1,000 ML IV STA (16:17)
[2022-12-22 16:25] LABS: Basophils % (A) 0 %; Eosinophils % (A) 0 %; HCT 40.8 % (39.0-53.0); HGB 14.1 gm/dL (13.0-17.5); Lymphocytes % (A) 9 %; MCH 31.7 pg (25.0-35.0); MCHC 34.5 g/dL (31.0-37.0); MCV 91.8 fL (80.0-100.0); Mean Platelet Volume 7.8; Monocytes # (A) 0.8 k/uL (0-1.0); Monocytes % (A) 7 %; Neutrophils # (A) 9.5 k/uL (1.3-7.7); Neutrophils % (A) 81 %; Platelet Count 179 k/uL (150-450); RBC 4.45 m/uL (4.30-5.90); RDW 12.1 % (11.5-15.5); WBC 11.7 k/uL (3.8-10.6)
[2022-12-22 16:39] LABS: ALT 87 U/L (4-49); AST 40 U/L (17-59); African American GFR (CKD) 61 (>60 ml/min/1.73 sqM); Albumin 3.9 g/dL (3.5-5.0); Alkaline Phosphatase 66 U/L (38-126); Anion Gap 9 mmol/L; Blood Urea Nitrogen 21 mg/dL (9-20); Calcium 8.9 mg/dL (8.4-10.2); Carbon Dioxide 28 mmol/L (22-30); Chloride 96 mmol/L (98-107); Glucose 111 mg/dL (74-99); Magnesium 1.6 mg/dL (1.6-2.3); Non-African American GFR(CKD) 53 (>60 ml/min/1.73 sqM); Potassium 3.7 mmol/L (3.5-5.1); Sodium 133 mmol/L (137-145); Total Bilirubin 0.5 mg/dL (0.2-1.3); Total Protein 6.5 g/dL (6.3-8.2)
[2022-12-22 16:50] LABS: INR 0.9 (<1.2); Partial Thromboplastin Time 24.6 sec (22.0-30.0); Prothrombin Time 10.5 sec (10.0-12.5)
--- NOTE | 2022-12-22 17:01 | XR ---
EXAMINATION: XR chest 2V: 12/22/2022 4:53 PM CLINICAL INDICATION: Weakness TECHNIQUE: Departmental protocol COMPARISON: None FINDINGS: The lungs are clear. The pleural spaces are negative. The cardiac silhouette is not enlarged. The remainder of the mediastinal silhouette is unremarkable. The skeletal structures and soft tissues are negative for acute findings. IMPRESSION: No acute radiographic process.
[2022-12-22 18:34] LABS: Appearance,Urine Clear (Clear); Bilirubin,Urine Negative (Negative); Blood,Urine Negative (Negative); Color,Urine Colorless; Glucose,Urine (UA) Negative (Negative); Ketones,Urine Negative (Negative); Leukocyte Esterase,Urine Negative (Negative); Nitrite,Urine Negative (Negative); Protein,Urine Negative (Negative); Specific Gravity,Urine 1.009 (1.001-1.035); Urobilinogen,Urine <2.0 mg/dL (<2.0)
[2022-12-22 19:41] VITALS: BP 156/70; PULSE 65; RESP 18; TEMP 98.8
== END 2022-12-22 19:39 | disposition home or self-care (01) ==
LOC: EC 15:04
DX: R25.1 Tremor, unspecified (principal); I10 Essential (primary) hypertension; K21.9 Gastro-esophageal reflux disease without esophagitis; N40.0 Benign prostatic hyperplasia without lower urinary tract symptoms; Z79.899 Other long term (current) drug therapy; Z88.8 Allergy status to other drugs, medicaments and biological substances; Z20.822 Contact with and (suspected) exposure to COVID-19
CPT/HCPCS: 36415; 71046; 80053; 81003; 83605; 83735; 85025; 85610; 85730; 87636; 96360; 99284; 99285

== ENCOUNTER → 2024-06-03 | Outpatient (CLI) | payer MEDICARE ==
[2024-06-03 12:24] LABS: African American GFR (CKD) 60 (>60 ml/min/1.73 sqM); Blood Urea Nitrogen 41 mg/dL (9-20); Non-African American GFR(CKD) 52 (>60 ml/min/1.73 sqM)
--- NOTE | 2024-06-03 14:42 | CT ---
EXAMINATION TYPE: CT abdomen pelvis w con CT DLP: 1138 mGycm, Automated exposure control for dose reduction was used. DATE OF EXAM: 06/03/2024 2:27 PM COMPARISON: None CLINICAL INDICATION:Male, 88 years old with history of R74.01 ELEVATION OF LEVELS OF LIVER TRANSAMI C 61; ELEVATION OF LIVER LEVELS. TECHNIQUE: Standard CT of the abdomen and pelvis following the administration of 100 cc of Isovue 3 00 IV contrast material and oral contrast. Coronal and sagittal reformats were performed. FINDINGS: LOWER CHEST: Bibasilar linear scarring and/or atelectasis. ABDOMEN LIVER: Several scattered hepatic simple appearing cysts identified with largest in the upper right he patic lobe measuring up to 13.2 cm. GALLBLADDER AND BILE DUCTS: Intra and extra hepatic biliary duct dilatation with a 1.2 cm lesion with in the proximal common bile duct at the pancreatic head (series 3, image 39). The common bile duct me asures up to 1.6 cm at the pancreatic head. PANCREAS: Unremarkable. No pancreatic ductal dilatation. SPLEEN: Unremarkable. ADRENAL GLANDS: Unremarkable. KIDNEYS AND URETERS: No evidence of hydronephrosis or renal calculus. The kidneys enhance symmetrical ly. PELVIS BLADDER: Unremarkable REPRODUCTIVE: Coarse calcifications of the prostate gland are identified. Enlarged prostate gland maria l suring 5.7 cm in transverse dimension. ABDOMEN & PELVIS STOMACH AND BOWEL: Stomach and duodenum are unremarkable. Enteric contrast reaches the mid transverse colon. The appendix is within normal limits. No focal bowel wall thickening or surrounding inflammat ory changes. Distal colonic diverticulosis without evidence for acute diverticulitis. No evidence of bowel obstruction. PERITONEUM: No evidence of pneumoperitoneum or free fluid. VASCULATURE: Mild atherosclerotic calcifications are present throughout the abdominal aorta and its b ranches. No evidence of aortic aneurysm. MUSCULOSKELETAL: No acute osseous abnormalities. No aggressive osseous lesion. Degenerative changes o f bilateral SI joints with anterior bridging. Multilevel degenerative changes of the visualized thora columbar spine. LYMPH NODES: No evidence for lymphadenopathy. SOFT TISSUE/ABDOMINAL WALL: Unremarkable IMPRESSION: 1. Moderate intra and extra hepatic biliary ductal dilatation with a 1.2 cm lesion within the common bile duct at the pancreatic head. Etiologies include choledocholithiasis versus neoplasm. Further daysi luation with MRCP/ERCP is recommended. 2. Several hepatic cysts with large right hepatic lobe 13.2 cm cyst. 3. Colonic diverticulosis without evidence for acute diverticulitis. 4. Prostatomegaly. A [place] level critical message alert has been initiated for Patience Mitchell MD via the [employer] Critical Results System on 06/03/2024 2:39 PM. This message alert has been sent to Patience gutierrez MD via the preferences provided by the clinician for the receipt of Radiology Critical Findings. Message ID [id number]. [facility], , 06/03/2024 2:40 PM
== END | disposition home or self-care (01) ==
LOC: RADCTMAIN 11:28
PROVIDERS: ATTEND Family Medicine
DX: C61 Malignant neoplasm of prostate (principal); K21.00 Gastro-esophageal reflux disease with esophagitis, without bleeding; R74.01 Elevation of levels of liver transaminase levels; N40.0 Benign prostatic hyperplasia without lower urinary tract symptoms; K76.89 Other specified diseases of liver; K57.30 Diverticulosis of large intestine without perforation or abscess without bleeding; K83.8 Other specified diseases of biliary tract; R63.4 Abnormal weight loss
CPT/HCPCS: 82565; 84520; 74177; 36415; Q9967

== ENCOUNTER → 2024-06-06 | Outpatient (CLI) | payer MEDICARE ==
--- NOTE | 2024-06-06 08:58 | MR ---
EXAMINATION TYPE: MR MRCP DATE OF EXAM: 06/06/2024 8:47 AM COMPARISON: CT. 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 TECHNIQUE: Multi planar, T2-weighted imaging with and without fat saturation and chemical shift imag ing was performed of the abdomen. Then, heavily T2 weighted imaging (half-Fourier acquisition single- shot turbo spin-echo) was utilized in order to study the biliary system. Maximum intensity projectio n images were reconstructed from the original data of the biliary tree. 3D images were created on [email or web address] work station. No Gadolinium given. FINDINGS: Lower Thorax: No evidence for acute process. MRCP: * The intrahepatic ducts dilated. * The extrahepatic ducts dilated * The common hepatic duct measures 17 mm in size with large choledocholithiasis is a 22 x 10 mm in t he * The common bile duct at the level of the pancreatic head measures 17 mm in size. * The pancreatic duct is normal. * The gallbladder appears unremarkable. Abdomen: Liver: No evidence for cirrhosis. Signal dropout on chemical shift out of phase imaging. Scattered hi gh T2 low T1 signal cysts throughout the liver parenchyma largest in the dome measuring up to 11.4 x 9.9 cm. Other smaller cysts present. Pancreas: No ductal dilation. No evidence for solid mass. Spleen: Normal for size. Adrenal glands: Unremarkable. Kidneys: No evidence for obstructive uropathy. No suspicious renal masses. Simple appearing high T2 s ignal cyst in the left anterior renal cortexr measuring 9 mm Stomach and Bowel: No evidence for bowel wall thickening or evidence for obstruction. Scattered colon ic diverticula present Retroperitoneum/Peritoneum: No evidence of pneumoperitoneum or free fluid. Vasculature: No aortic aneurysm. Musculoskeletal: The osseous structures appear intact. Lymph Nodes: No gross evidence for lymphadenopathy. Abdominal wall: Unremarkable. IMPRESSION: 1. Large Choledocholith in the common bile duct (measuring up to 22 x 10 mm) with dilated biliary sy stem. No solid masses definitively visualized. 2. Large simple appearing hepatic cysts. No follow-up required for recess. 3. Hepatic steatosis. 4. Scattered colonic diverticulosis. [facility], , 06/06/2024 8:55 AM
== END | disposition home or self-care (01) ==
LOC: RADMRIMAIN 07:30
PROVIDERS: ATTEND Family Medicine
DX: K80.50 Calculus of bile duct without cholangitis or cholecystitis without obstruction (principal); K76.0 Fatty (change of) liver, not elsewhere classified; K86.89 Other specified diseases of pancreas; K76.89 Other specified diseases of liver; K57.30 Diverticulosis of large intestine without perforation or abscess without bleeding
CPT/HCPCS: 74181

== ENCOUNTER 2024-06-11 08:36 | Inpatient (IN) | payer MEDICARE ==
--- NOTE | 2024-06-11 09:04 | ED ---
General Adult HPI - General Chief complaint: Abdominal Pain Stated complaint: abd pain Time Seen by Provider: 06/11/24 08:38 Source: patient, family Mode of arrival: ambulatory Limitations: no limitations - History of Present Illness Initial comments: Dictation was produced using [employer] dictation software. please excuse any grammatical, word or spelling errors. Chief Complaint: 88-year-old male with history of hypertension prostate disease presents to the ER for acute on chronic epigastric pain History of Present Illness: [patient is 88-year-old male presents emergency department with acute on chronic epigastric pain states that he has been having this pain for about a year. Family members at the bedside aid in providing history present illness states that he has been having the symptoms for a year states that it is in his right upper quadrant radiates to the back. States that his symptoms were exacerbated with oral intake today. Last week he had imaging studies which showed that patient had biliary ductal dilatation. He was set to follow-up with a surgeon coming up. Denies any fever. The ROS documented in this emergency department record has been reviewed and confirmed by me. Those systems with pertinent positive or negative responses have been documented in the HPI. All other systems are other negative and/or noncontributory. - Related Data Home Medications Medication Instructions Recorded Confirmed Aspirin [Adult Low Dose Aspirin EC] 81 mg PO DAILY 12/03/15 07/22/21 Enalapril/Hydrochlorothiazide 1 tab PO QAM 12/03/15 07/22/21 [Vaseretic 10-25 mg] Multivitamins, Thera [Multivitamin 1 tab PO DAILY 12/03/15 07/22/21 (formulary)] Primidone [Mysoline] 50 mg PO BID 12/03/15 07/22/21 Tamsulosin HCl [Flomax] 0.4 mg PO BID 12/03/15 07/22/21 Famotidine [Pepcid] 40 mg PO DAILY 05/29/20 07/22/21 Allergies Allergy/AdvReac Type Severity Reaction Status Date / Time pantoprazole [From Protonix] Allergy Rash/Hives Verified 12/22/22 15:21 Review of Systems ROS Statement: Those systems with pertinent positive or pertinent negative responses have been documented in the HPI. ROS Other: All systems not noted in ROS Statement are negative. Past Medical History Past Medical History: Cancer, GERD/Reflux, Hearing Disorder / Deafness, Hypertension, Osteoarthritis (OA), Prostate Disorder Additional Past Medical History / Comment(s): recently seen in [facility] w/dysphagia, has happened before, BPH, prostate cancer being monitored, arthritis in multiple joints, basal cell skin cancer face, bilateral arm/hand tremors treated with mysoline. deaf left ear, hearing loss right ear History of Any Multi-Drug Resistant Organisms: None Reported Past Surgical History: Back Surgery, Joint Replacement, Orthopedic Surgery Additional Past Surgical History / Comment(s): EGD, R total knee arthroplasty, L5 lumbar laminectomy/discectomy, skin cancer removed R scientology area, bilateral cataract removals/lens implants. Past Anesthesia/Blood Transfusion Reactions: No Reported Reaction Past Psychological History: No Psychological Hx Reported Smoking Status: Never smoker Past Alcohol Use History: None Reported Past Drug Use History: None Reported - Past Family History Brother(s) Family Medical History: Cancer Father Family Medical History: Myocardial Infarction ([place]) Additional Family Medical History / Comment(s): AT AGE 53YR from a [place]. Mother Additional Family Medical History / Comment(s): MOM WAS HEALTHY LIVED TILL AGE 99- FELL BROKE A HIP AND WENT [place] . General Exam - General Exam Comments Initial Comments: PHYSICAL EXAM: General Impression: Alert and oriented x3, not in acute distress HEENT: Normocephalic atraumatic, extra-ocular movements intact, pupils equal and reactive to light bilaterally, mucous membranes moist. Cardiovascular: Heart regular rate and rhythm Chest: Able to complete full sentences, no retractions, no tachypnea Abdomen: abdomen soft, epigastric tenderness, negative Maravilla sign, non- distended, no organomegaly Musculoskeletal: Pulses present and equal in all extremities, no peripheral edema Motor: no focal deficits noted Neurological: CN II-XII grossly intact, no focal motor or sensory deficits noted Skin: Intact with no visualized rashes Psych: Normal affect and mood Limitations: no limitations Course Vital Signs 06/11/24 06/11/24 08:36 09:25 Temperature 98 F Pulse Rate 80 78 Respiratory 20 18 Rate Blood Pressure 172/74 146/73 O2 Sat by Pulse 98 98 Oximetry - Reevaluation(s) Reevaluation #1: 06/11/24 09:04 Chart review was performed. Patient had a MRCP that showed choledocholithiasis in the common bile duct causing biliary dilatation. Medical Decision Making - Medical Decision Making Was pt. sent in by a medical professional or institution (, PA, BOWLING FLOOR DESK CLERK, urgent care, hospital, or residential...) When possible be specific @ -No Did you speak to anyone other than the patient for history (EMS, parent, family, police, friend...)? What history was obtained from this source @ -See above Did you review nursing and triage notes (agree or disagree)? Why? @ -I reviewed and agree with nursing and triage notes Were old charts reviewed (outside hosp., previous admission, EMS record, old EKG, old radiological studies, urgent care reports/EKG's, residential records)? Report findings @ -See above Differential Diagnosis (chest pain, altered mental status, abdominal pain women, abdominal pain men, vaginal bleeding, musculoskeletal, weakness, fever, dyspnea, syncope, headache, dizziness, GI bleed, back pain, seizure, CVA, palpatations, mental health)? @ -Differential Abdominal Pain Men: Appendicitis, cholecystitis, diverticulosis, ischemic bowel, pancreatitis, hepatitis, UTI, gastroenteritis, AAA, incarcerated hernia, bowel obstruction, constipation, inflammatory bowel, hepatitis, peptic ulcer disease, splenic infarction, perforated viscus, testicular torsion, this is not meant to be an all-inclusive list EKG interpreted by me (3pts min.). @ -See above X-rays interpreted by me (1pt min.). @ -KUB shows no acute processes CT interpreted by me (1pt min.). @ -None done U/S interpreted by me (1pt. min.). @ -None done What testing was considered but not performed or refused? (CT, X-rays, U/S, labs)? Why? @ -None What meds were considered but not given or refused? Why? @ -None Was smoking cessation discussed for >3mins.? @ -No Were there social determinants of health that impacted care today? How? (Homelessness, low income, unemployed, alcoholism, drug addiction, transportation, low edu. Level, literacy, decrease access to med. care, [facility], rehab)? @ -No Was there de-escalation of care discussed even if they declined (Discuss DNR or withdrawal of care, Hospice)? DNR status @ -No What co-morbidities impacted this encounter? (DM, HTN, Smoking, COPD, CAD, Cancer, CVA, ARF, Chemo, Hep., AIDS, mental health diagnosis, sleep apnea, morbid obesity)? @ -None Was patient admitted / discharged? Hospital course, mention meds given and route, prescriptions, significant lab abnormalities, going to OR and other pertinent info. @ -Patient is an 88-year-old male presents the emergency department acute on chronic abdominal pain. He recently had MRCP that showed choledocholithiasis. Vital signs stable. Patient no acute distress at the bedside. Laboratory evaluation shows no acute processes. KUB x-ray is unremarkable. Case discussed with general surgery on-call. He is agreeable that patient is amenable for admission to our hospital with GI consultation. Case discussed with hospitalist for admission. Did you discuss the management of the patient with other professionals (trell kasper i.e. , PA, BOWLING FLOOR DESK CLERK, lab, RT, psych nurse, social media sr strategy manager, sounding device operator, teacher, customs and border protection officer, rn case mgr)? Give summary @ -See above Was critical care preformed (if so, how long)? @ -No Undiagnosed new problem with uncertain prognosis? @ -No Drug Therapy requiring intensive monitoring for toxicity (Heparin, Nitro, Insulin, Cardizem)? @ -No Were any procedures done? @ -No Diagnosis/symptom? Acute, or Chronic, or Acute on Chronic? Uncomplicated (without systemic symptoms) or Complicated (systemic symptoms)? @ -Acute complicated choledocholithiasis Side effects of treatment? @ -No Exacerbation, Progression, or Severe Exacerbation? @ -No Poses a threat to life or bodily function? How? (Chest pain, [place], [place], pneumonia, PE, COPD, DKA, ARF, appy, cholecystitis, CVA, Diverticulitis, Homicidal, Suicidal, threat to staff... and all critical care pts) @ -yes - Lab Data Result diagrams: 06/11/24 09:05 06/11/24 09:05 Lab Results 06/11/24 06/11/24 06/11/24 Range/Units 09:05 09:05 09:05 WBC 8.06 (4.50-10.00) 10*3/uL RBC 4.24 L (4.40-5.60) 10*6/uL Hgb 13.5 (13.0-17.0) g/dL Hct 38.8 L (39.6-50.0) % MCV 91.5 (80.0-97.0) fL MCH 31.8 (27.0-32.0) pg MCHC 34.8 (32.0-37.0) g/dL Plt Count 107 L (140-440) 10*3/uL MPV 11.6 (9.5-12.2) fL Immature Gran % (Auto) 0.9 % Neutrophils % 70.8 % Lymphocytes % 19.4 % Monocytes % 6.5 % Eosinophils % 1.7 % Basophils % 0.7 % Immature Gran # 0.07 H (0.00-0.04) 10*3/uL Neutrophils # 5.71 (1.80-7.70) 10*3/uL Lymphocytes # 1.56 (0.90-5.00) 10*3/uL Monocytes # 0.52 (0.20-1.00) 10*3/uL Eosinophils # 0.14 (0.04-0.35) 10*3/uL Basophils # 0.06 (0.00-0.10) 10*3/uL Immature Plt Fraction 5.7 (1.1-6.1) % PT 10.3 (10.0-12.5) sec INR 0.9 (<1.2) APTT 22.2 (22.0-30.0) sec Sodium 137 (137-145) mmol/L Potassium 4.2 (3.5-5.1) mmol/L Chloride 101 (98-107) mmol/L Carbon Dioxide 30 (22-30) mmol/L Anion Gap 6 mmol/L BUN 36 H (9-20) mg/dL Creatinine 1.22 (0.66-1.25) mg/dL Est GFR (CKD-EPI)AfAm 62 (>60 ml/min/1.73 sqM) Est GFR (CKD-EPI)NonAf 54 (>60 ml/min/1.73 sqM) Glucose 97 (74-99) mg/dL Calcium 9.3 (8.4-10.2) mg/dL Total Bilirubin 1.2 (0.2-1.3) mg/dL AST 77 H (17-59) U/L ALT 183 H (4-49) U/L Alkaline Phosphatase 621 H (38-126) U/L Total Protein 7.0 (6.3-8.2) g/dL Albumin 3.9 (3.5-5.0) g/dL Lipase 191 (23-300) U/L Disposition Clinical Impression: Choledocholithiasis Disposition: ADMITTED IP TO THIS HOSP Condition: Fair Referrals: Patience Mitchell MD [Primary Care Provider] - 1-2 days Decision Time: 10:58
[2024-06-11 09:13] LABS: Basophils # (A) 0.06 10*3/uL (0.00-0.10); Basophils % (A) 0.7 %; Eosinophils # (A) 0.14 10*3/uL (0.04-0.35); Eosinophils % (A) 1.7 %; HCT 38.8 % (39.6-50.0); HGB 13.5 g/dL (13.0-17.0); Immature Platelet Fraction 5.7 % (1.1-6.1); Lymphocytes # (A) 1.56 10*3/uL (0.90-5.00); Lymphocytes % (A) 19.4 %; MCH 31.8 pg (27.0-32.0); MCHC 34.8 g/dL (32.0-37.0); MCV 91.5 fL (80.0-97.0); Mean Platelet Volume 11.6 fL (9.5-12.2); Monocytes # (A) 0.52 10*3/uL (0.20-1.00); Monocytes % (A) 6.5 %; Neutrophils # (A) 5.71 10*3/uL (1.80-7.70); Neutrophils % (A) 70.8 %; Platelet Count 107 10*3/uL (140-440); RBC 4.24 10*6/uL (4.40-5.60); RDW 12.7 % (11.5-14.5); WBC 8.06 10*3/uL (4.50-10.00)
--- NOTE | 2024-06-11 09:22 | XR ---
EXAMINATION TYPE: XR KUB DATE OF EXAM: 06/11/2024 9:17 AM CLINICAL INDICATION: Male, 88 years old with history of abdominal pain, pain TECHNIQUE: 2 upright views of the abdomen. COMPARISON: CT abdomen and pelvis June 03, 2024. FINDINGS: Gas seen in nondistended stomach. Scattered gas is seen in non-distended small bowel loops. Gas and fecal material is seen in non-distended colon. Scoliotic curvature to the lumbar spine is re demonstrated. Lung bases remain clear. No free air is seen. IMPRESSION: Overall nonobstructive bowel gas pattern remains present. [facility], , 06/11/2024 9:19 AM
[2024-06-11 09:30] LABS: ALT 183 U/L (4-49); AST 77 U/L (17-59); African American GFR (CKD) 62 (>60 ml/min/1.73 sqM); Albumin 3.9 g/dL (3.5-5.0); Alkaline Phosphatase 621 U/L (38-126); Anion Gap 6 mmol/L; Blood Urea Nitrogen 36 mg/dL (9-20); Calcium 9.3 mg/dL (8.4-10.2); Carbon Dioxide 30 mmol/L (22-30); Chloride 101 mmol/L (98-107); Glucose 97 mg/dL (74-99); Lipase 191 U/L (23-300); Non-African American GFR(CKD) 54 (>60 ml/min/1.73 sqM); Potassium 4.2 mmol/L (3.5-5.1); Sodium 137 mmol/L (137-145); Total Bilirubin 1.2 mg/dL (0.2-1.3)
[2024-06-11 09:34] LABS: INR 0.9 (<1.2); Partial Thromboplastin Time 22.2 sec (22.0-30.0); Prothrombin Time 10.3 sec (10.0-12.5)
[2024-06-11] MEDS ORDERED: ONDANSETRON 4 MG/2 ML VIAL IVP PRN (10:51)
[2024-06-11] MEDS ORDERED: MORPHINE SULFATE 4 MG/ML SYRINGE IV PRN (10:51)
[2024-06-11] MEDS ORDERED: NALOXONE 0.4 MG/ML 1 ML VIAL IV PRN (10:51)
--- NOTE | 2024-06-11 14:43 | P.GSCN ---
History of Present Illness Consult date: 06/11/24 History of present illness: CHIEF COMPLAINT: Epigastric abdominal pain HISTORY OF PRESENT ILLNESS: This is a 88-year-old male who presented the hospital with complaints of epigastric abdominal pain that has been intermittent over the last year. Patient had workup started outpatient. He had an MRCP completed on June 06, 2024 that reported a large choledocholith in the common bile duct measuring up to 22 x 10 mm with dilated biliary system. No solid masses definitely visualized. Large simple appearing hepatic cysts. Patient did have elevated LFTs. He has been evaluated by GI service and scheduled for ERCP tomorrow. Patient does report having nausea and pain after eating. Patient denies any prior abdominal surgeries. Denies being on any blood thinners. Patient with a known history of prostate cancer. PAST MEDICAL HISTORY: See below PAST SURGICAL HISTORY: See below MEDICATIONS: See below ALLERGIES: See below SOCIAL HISTORY: No illicit drug use. REVIEW OF SYSTEMS: CONSTITUTIONAL: Denies fever or chills. HEENT: Denies blurred vision, vision changes, or eye pain. Denies hemoptysis CARDIOVASCULAR: Denies chest pain or pressure. RESPIRATORY: No shortness of breath. GASTROINTESTINAL: See HPI for pertinent findings HEMATOLOGIC: Denies bleeding disorders. GENITOURINARY: Denies any blood in urine or increased urinary frequency. SKIN: Denies pruitis. Denies rash. PHYSICAL EXAM: VITAL SIGNS: Reviewed GENERAL: Well-developed in no acute distress. HEENT: No sclera icterus. Extraocular movements grossly intact. Moist buccal mucosa. Head is atraumatic, normocephalic. No nasal drainage. ABDOMEN: Soft. Nondistended. Epigastric tenderness palpation. No rebound or guarding. NEUROLOGIC: Alert and oriented. Cranial nerves II through XII grossly intact. LABORATORY DATA: WBC 8.6 Hgb 13.5 platelets 107 Sodium 137 potassium 4.2 creatinine 1.22 Total bili 1.2 AST 77 ALT 183 alk phos 621 Lipase 191 IMAGING: MRCP reports large choledocholith in the common bile duct measuring 22 x 10 mm with dilated biliary system. Large simple appearing hepatic cysts. Hepatic steatosis. Scattered colonic diverticulosis. Gallbladder appears unremarkable. ASSESSMENT: 1. Choledocholithiasis with large stone in common bile duct measuring 22 x 10 mm with dilated biliary system 2. Elevated LFTs 3. Epigastric abdominal pain PLAN: - Patient scheduled for ERCP tomorrow with GI service - Repeat labs in a.m. - Await further recommends per GI service - Continue to follow -Continue supportive care Physician Motor Vehicle Technician note has been reviewed by physician. Signing provider agrees with the documented findings, assessment, and plan of care. I have personally seen and examined the patient, reviewed the IT ARCHITECTURE ANALYST /PAs history, exam and MDM and agree with the assessment and plan as written. Based on total visit time, I have performed more than 50% of the visit. As above: Patient with admission for choledocholithiasis possible cholangitis. Doing better now. MRI shows large stone in the bile duct. Case reviewed with GI. Concerned that they are going to be unable to remove the, bile duct stone. The likely will proceed with stent placement this admission. GI has not formally scheduled anything yet. CAT scan prior to that was reviewed. The patient does have gallstones present. Given the size of this large stone in the bile duct would not be surprised if this stone started in the common bile duct. Given the patient's advanced age would consider observation after appropriate management of the CBD stone by GI. Will follow. Past Medical History Past Medical History: Cancer, GERD/Reflux, Hearing Disorder / Deafness, Hypertension, Osteoarthritis (OA), Prostate Disorder Additional Past Medical History / Comment(s): recently seen in [facility] w/dysphagia, has happened before, BPH, prostate cancer being monitored, arthritis in multiple joints, basal cell skin cancer face, bilateral arm/hand tremors treated with mysoline. deaf left ear, hearing loss right ear History of Any Multi-Drug Resistant Organisms: None Reported Past Surgical History: Back Surgery, Joint Replacement, Orthopedic Surgery Additional Past Surgical History / Comment(s): EGD, R total knee arthroplasty, L5 lumbar laminectomy/discectomy, skin cancer removed R yazdanism area, bilateral cataract removals/lens implants. Past Anesthesia/Blood Transfusion Reactions: No Reported Reaction Past Psychological History: No Psychological Hx Reported Additional Psychological History / Comment(s): . Smoking Status: Never smoker Past Alcohol Use History: None Reported Past Drug Use History: None Reported - Past Family History Brother(s) Family Medical History: Cancer Father Family Medical History: Myocardial Infarction ([place]) Additional Family Medical History / Comment(s): AT AGE 53YR from a [place]. Mother Additional Family Medical History / Comment(s): MOM WAS HEALTHY LIVED TILL AGE 99- FELL BROKE A HIP AND [place] . Medications and Allergies Home Medications Medication Instructions Recorded Confirmed Type Aspirin [Adult Low Dose Aspirin EC] 81 mg PO DAILY 12/03/15 06/11/24 History Multivitamins, Thera [Multivitamin 1 tab PO DAILY 12/03/15 06/11/24 History (formulary)] Tamsulosin HCl [Flomax] 0.4 mg PO BID 12/03/15 06/11/24 History Famotidine [Pepcid] 40 mg PO BID 05/29/20 06/11/24 History Enalapril [Vasotec] 10 mg PO DAILY 06/11/24 06/11/24 History Pantoprazole Sodium [Protonix] 40 mg PO BID-W/MEALS 06/11/24 06/11/24 History Primidone [Mysoline] 250 mg PO HS 06/11/24 06/11/24 History hydroCHLOROthiazide [Hydrodiuril] 25 mg PO DAILY 06/11/24 06/11/24 History Allergies Allergy/AdvReac Type Severity Reaction Status Date / Time pantoprazole [From Protonix] Allergy Rash/Hives Verified 06/11/24 11:27 Surgical - Exam Vital Signs Temp Pulse Resp BP Pulse Ox 98 F 80 20 172/74 98 06/11/24 08:36 06/11/24 08:36 06/11/24 08:36 06/11/24 08:36 06/11/24 08:36 Results - Labs 06/11/24 09:05 06/11/24 09:05 Abnormal Lab Results - Last 24 Hours (Table) 06/11/24 06/11/24 Range/Units 09:05 09:05 RBC 4.24 L (4.40-5.60) 10*6/uL Hct 38.8 L (39.6-50.0) % Plt Count 107 L (140-440) 10*3/uL Immature Gran # 0.07 H (0.00-0.04) 10*3/uL BUN 36 H (9-20) mg/dL AST 77 H (17-59) U/L ALT 183 H (4-49) U/L Alkaline Phosphatase 621 H (38-126) U/L Diabetes panel 06/11/24 Range/Units 09:05 Sodium 137 (137-145) mmol/L Potassium 4.2 (3.5-5.1) mmol/L Chloride 101 (98-107) mmol/L Carbon Dioxide 30 (22-30) mmol/L BUN 36 H (9-20) mg/dL Creatinine 1.22 (0.66-1.25) mg/dL Glucose 97 (74-99) mg/dL Calcium 9.3 (8.4-10.2) mg/dL AST 77 H (17-59) U/L ALT 183 H (4-49) U/L Alkaline Phosphatase 621 H (38-126) U/L Total Protein 7.0 (6.3-8.2) g/dL Albumin 3.9 (3.5-5.0) g/dL Calcium panel 06/11/24 Range/Units 09:05 Calcium 9.3 (8.4-10.2) mg/dL Albumin 3.9 (3.5-5.0) g/dL Pituitary panel 06/11/24 Range/Units 09:05 Sodium 137 (137-145) mmol/L Potassium 4.2 (3.5-5.1) mmol/L Chloride 101 (98-107) mmol/L Carbon Dioxide 30 (22-30) mmol/L BUN 36 H (9-20) mg/dL Creatinine 1.22 (0.66-1.25) mg/dL Glucose 97 (74-99) mg/dL Calcium 9.3 (8.4-10.2) mg/dL Adrenal panel 06/11/24 Range/Units 09:05 Sodium 137 (137-145) mmol/L Potassium 4.2 (3.5-5.1) mmol/L Chloride 101 (98-107) mmol/L Carbon Dioxide 30 (22-30) mmol/L BUN 36 H (9-20) mg/dL Creatinine 1.22 (0.66-1.25) mg/dL Glucose 97 (74-99) mg/dL Calcium 9.3 (8.4-10.2) mg/dL Total Bilirubin 1.2 (0.2-1.3) mg/dL AST 77 H (17-59) U/L ALT 183 H (4-49) U/L Alkaline Phosphatase 621 H (38-126) U/L Total Protein 7.0 (6.3-8.2) g/dL Albumin 3.9 (3.5-5.0) g/dL
--- NOTE | 2024-06-11 15:48 | P.CONS ---
History of Present Illness - Reason for Consult Consult date: 06/11/24 Choledocholithiasis Requesting physician: Navdeep Blackman - Chief Complaint abdominal pain - History of Present Illness This a pleasant 88-year-old male with past medical history including prostate cancer, hypertension, GERD and esophagitis with multiple upper endoscopies in the past who has been experiencing epigastric discomfort for the last several months with apparent elevated LFTs and he has been following with his primary care physician Dr. Mitchell. Patient appears to be somewhat of a poor historian but he has multiple family members at the bedside who states that he has been following with Dr. Denise since at least March having blood work done which has showed elevated liver enzymes. He underwent outpatient CT of the abdomen pelvis on 06/03/2024 that reported biliary dilation with a 1.2 cm lesion in the common bile duct at the pancreatic head concerning for possible neoplasm versus CBD stone. Apparently then patient was sent for MRCP which he had undergone 06/06/2024 with findings of large CBD stone. Family states they were told by Dr. Mitchell to make an appointment with a general surgeon and have an appointment scheduled next week with Dr. Iglesias, However, he continued to have epigastric pain so they came in for further evaluation. He was noted to have elevated LFTs, previous imaging was reviewed and gastroenterology was consulted for choled ocholithiasis. Patient is known to the gastroenterology office and has seen Dr. Quintero and Reyna in the past for upper endoscopies for ongoing GERD and esophagitis. Last upper endoscopy in [address] Quintero with findings of distal esophageal stricture status post balloon dilation and no evidence of esophagitis. He had an EGD in May 2020 with findings of Schatzki ring status post dilation, EGD in 2019 with findings of gastritis and LA grade a esophagitis. He continues to state he has abdominal discomfort in the epigastric region, no nausea or vomiting. Today's labs total bilirubin 1.2 AST 77 ALT 183 alkaline phosphatase 621 lipase 191. Review of Systems REVIEW OF SYSTEMS: CARDIOPULMONARY: No chest pain or shortness of breath. Gastrointestinal: Epigastric abdominal pain. Recurrent belching. GERD. No nausea or vomiting. No hematemesis, coffee-ground emesis. No rectal bleeding, or melena. GENITOURINARY: No dysuria or hematuria. MUSCULOSKELETAL: Reports normal range of motion. SKIN: No rashes. No jaundice. ENDOCRINE: No chills, fevers. No excessive weight gain or loss. No polydipsia or polyuria. PSYCHIATRIC: Unremarkable. NEUROLOGY: No change in mental status. Denies dizziness, headache. ENT: Vision unremarkable. CONSTITUTIONAL: No recent weight loss. No fever, chills, night sweats. Past Medical History Past Medical History: Cancer, GERD/Reflux, Hearing Disorder / Deafness, Hypertension, Osteoarthritis (OA), Prostate Disorder Additional Past Medical History / Comment(s): recently seen in [facility] w/dysphagia, has happened before, BPH, prostate cancer being monitored, arthritis in multiple joints, basal cell skin cancer face, bilateral arm/hand tremors treated with mysoline. deaf left ear, hearing loss right ear History of Any Multi-Drug Resistant Organisms: None Reported Past Surgical History: Back Surgery, Joint Replacement, Orthopedic Surgery Additional Past Surgical History / Comment(s): EGD, R total knee arthroplasty, L5 lumbar laminectomy/discectomy, skin cancer removed R moravian area, bilateral cataract removals/lens implants. Past Anesthesia/Blood Transfusion Reactions: No Reported Reaction Past Psychological History: No Psychological Hx Reported Additional Psychological History / Comment(s): . Smoking Status: Never smoker Past Alcohol Use History: None Reported Past Drug Use History: None Reported - Past Family History Brother(s) Family Medical History: Cancer Father Family Medical History: Myocardial Infarction ([place]) Additional Family Medical History / Comment(s): AT AGE 53YR from a [place]. Mother Additional Family Medical History / Comment(s): MOM WAS HEALTHY LIVED TILL AGE 99- FELL BROKE A HIP AND [place] . Medications and Allergies Home Medications Medication Instructions Recorded Confirmed Type Aspirin [Adult Low Dose Aspirin EC] 81 mg PO DAILY 12/03/15 06/11/24 History Multivitamins, Thera [Multivitamin 1 tab PO DAILY 12/03/15 06/11/24 History (formulary)] Tamsulosin HCl [Flomax] 0.4 mg PO BID 12/03/15 06/11/24 History Famotidine [Pepcid] 40 mg PO BID 05/29/20 06/11/24 History Enalapril [Vasotec] 10 mg PO DAILY 06/11/24 06/11/24 History Pantoprazole Sodium [Protonix] 40 mg PO BID-W/MEALS 06/11/24 06/11/24 History Primidone [Mysoline] 250 mg PO HS 06/11/24 06/11/24 History hydroCHLOROthiazide [Hydrodiuril] 25 mg PO DAILY 06/11/24 06/11/24 History Allergies Allergy/AdvReac Type Severity Reaction Status Date / Time pantoprazole [From Protonix] Allergy Rash/Hives Verified 06/11/24 11:27 Physical Exam Vitals: Vital Signs Temp Pulse Resp BP Pulse Ox 06/11/24 11:47 97.8 F 69 18 150/66 99 06/11/24 09:25 78 18 146/73 98 06/11/24 08:36 98 F 80 20 172/74 98 Intake and Output 06/10/24 06/11/24 06/11/24 22:59 06:59 14:59 Other: Weight 70.76 kg General appearance: The patient is alert, oriented, appears in no acute dis tress. HET: Head is normocephalic and atraumatic. Conjunctiva pink. Sclera anicteric. Neck: Supple without lymphadenopathy. Trachea midline. Heart: Regular. Lungs: Equal expansion, normal respiratory effort. Abdomen: Soft, epigastric and right upper quadrant tenderness, nondistended. Skin: No rashes. No jaundice. Extremities: Normal skin color and turgor. No pedal edema. Neurological: No focal deficits. Alert and oriented x3. Results CBC & Chem 7: 06/11/24 09:05 06/11/24 09:05 Labs: Abnormal Lab Results - Last 24 Hours (Table) 06/11/24 06/11/24 Range/Units 09:05 09:05 RBC 4.24 L (4.40-5.60) 10*6/uL Hct 38.8 L (39.6-50.0) % Plt Count 107 L (140-440) 10*3/uL Immature Gran # 0.07 H (0.00-0.04) 10*3/uL BUN 36 H (9-20) mg/dL AST 77 H (17-59) U/L ALT 183 H (4-49) U/L Alkaline Phosphatase 621 H (38-126) U/L Comments: MRCP dated 06/06/2024 done as outpatient ordered by Dr. David Mitchell reports large choledochal lithiasis in the common bile duct measuring up to 22 x 10 mm with dilated biliary system. No solid masses to definitively visualized. Large simple appearing hepatic cyst. No follow-up required for recess. Hepatic steatosis. Scattered colonic diverticulosis. CT abdomen pelvis with contrast dated 06/03/2024 done as outpatient ordered by Dr. David Mitchell reports moderate intra and extrahepatic biliary ductal dilation with a 1.2 cm lesion within the common bile duct at the pancreatic head. Etiologies include choledochal lithiasis versus neoplasm. Further evaluation with MRCP/ERCP is recommended. Several hepatic cysts with large right hepatic lobe 13.2 cm cyst. Colonic diverticulosis without evidence for acute di verticulitis. Prostamegaly. Assessment and Plan (1) Choledocholithiasis Narrative/Plan: 88-year-old male who states he has been having epigastric pain for last several months and has been following with his primary care physician Dr. Mitchell with notable elevated bilirubin and LFTs since March of this year. He has had outpatient imaging ordered by his PCP with most recent MRCP done on 05/07/2024 with reported large CBD stone. Patient's epigastric pain likely secondary to choledocholithiasis. Due to size of stone ERCP discussed with patient and his family at the bedside including his that CBD stone is quite large and patient may be better off being transferred to a tertiary center with advanced installation tech. Patient's family states that they would like him to stay here and undergo ERCP. Discussed with patient's will proceed with ERCP tomorrow and if unable to remove stone patient will need to be transferred to [facility]. Risks and benefits discussed with patient and . They would like to proceed with ERCP here. Will plan for tomorrow. Current Visit: Yes Status: Acute Code(s): K80.50 - CALCULUS OF BILE DUCT W/O CHOLANGITIS OR CHOLECYST W/O OBST SNOMED Code(s): 923864286 (2) Transaminitis Current Visit: Yes Status: Acute Code(s): R74.01 - ELEVATION OF LEVELS OF LIVER TRANSAMINASE LEVELS SNOMED Code(s): 687553165 (3) Epigastric pain Current Visit: Yes Status: Acute Code(s): R10.13 - EPIGASTRIC PAIN SNOMED Code(s): 54530649 (4) GERD (gastroesophageal reflux disease) Current Visit: No Status: Acute Code(s): K21.9 - GASTRO-ESOPHAGEAL REFLUX D ISEASE WITHOUT ESOPHAGITIS SNOMED Code(s): 022614164 Plan: 1. Continue symptomatic and supportive care 2. Patient may have clear liquid diet, n.p.o. after midnight 3. Previous CT imaging and MRCP reviewed. Previous labs reviewed from March of this year until present 4. Protonix 40 mg daily for GI prophylaxis 5. Will plan for ERCP tomorrow. Risks and benefits discussed with patient and his . They verbalized understanding and want to proceed with ERCP here tomorrow 6. Patient will need indomethacin 100 mg per rectum and Levaquin 1 hour prior to procedure 7. Continue with recommendations from general surgery 8. No anticoagulation 9. Rest of medical management per primary medical team Thank you for this consultation, we will continue to follow. Dr. Joan Quintero I agree with the dictator's note, documented as a scribe by Beatriz Avilez.
--- NOTE | 2024-06-11 17:36 | P.HPIM ---
History of Present Illness H&P Date: 06/11/24 Alan Parra, is an 88-year-old male who presented to [facility] emergency room with a chief complaint of abdominal pain, patient describes a pressure sensation in the epigastric and right upper quadrant, he stated that his symptoms started about 1 year ago on and off , he was recently seen by Dr. Mitchell for similar complaint, MRCP was ordered and revealed large choledocholithiasis in the common bile duct with dilated biliary system, he was sent to emergency room when test results were available. He was evaluated in the emergency room vital examination on presentation revealed a temperature of 98 pulse 80 respiration 20 blood pressure 172/74 pulse ox 98% on room air Laboratory data revealed a white blood count of 8.06 hemoglobin 13.5 platelet count 107 BUN 36 creatinine 1.22 AST 77 ALT 183 alkaline phosphatase 621 Testing in the emergency room revealed KUB was done in the emergency room and did not reveal significant abnormality Patient was admitted to medical floor for further evaluation and treatment, gastroenterology consultation and surgical consultation were requested Past Medical History Past Medical History: Cancer, GERD/Reflux, Hearing Disorder / Deafness, Hypertension, Osteoarthritis (OA), Prostate Disorder Additional Past Medical History / Comment(s): recently seen in w/dysphagia, has happened before, BPH, prostate cancer being monitored, arthritis in multiple joints, basal cell skin cancer face, bilateral arm/hand tremors treated with mysoline. deaf left ear, hearing loss right ear History of Any Multi-Drug Resistant Organisms: None Reported Past Surgical History: Back Surgery, Joint Replacement, Orthopedic Surgery Additional Past Surgical History / Comment(s): EGD, R total knee arthroplasty, L5 lumbar laminectomy/discectomy, skin cancer removed R baptism area, bilateral cataract removals/lens implants. Past Anesthesia/Blood Transfusion Reactions: No Reported Reaction Past Psychological History: No Psychological Hx Reported Additional Psychological History / Comment(s): . Smoking Status: Never smoker Past Alcohol Use History: None Reported Past Drug Use History: None Reported - Past Family History Brother(s) Family Medical History: Cancer Father Family Medical History: Myocardial Infarction ([place]) Additional Family Medical History / Comment(s): AT AGE 53YR from a [place]. Mother Additional Family Medical History / Comment(s): MOM WAS HEALTHY LIVED TILL AGE 99- FELL BROKE A HIP AND [place] . Medications and Allergies Home Medications Medication Instructions Recorded Confirmed Type Aspirin [Adult Low Dose Aspirin EC] 81 mg PO DAILY 12/03/15 06/11/24 History Multivitamins, Thera [Multivitamin 1 tab PO DAILY 12/03/15 06/11/24 History (formulary)] Tamsulosin HCl [Flomax] 0.4 mg PO BID 12/03/15 06/11/24 History Famotidine [Pepcid] 40 mg PO BID 05/29/20 06/11/24 History Enalapril [Vasotec] 10 mg PO DAILY 06/11/24 06/11/24 History Pantoprazole Sodium [Protonix] 40 mg PO BID-W/MEALS 06/11/24 06/11/24 History Primidone [Mysoline] 250 mg PO HS 06/11/24 06/11/24 History hydroCHLOROthiazide [Hydrodiuril] 25 mg PO DAILY 06/11/24 06/11/24 History Allergies Allergy/AdvReac Type Severity Reaction Status Date / Time pantoprazole [From Protonix] Allergy Rash/Hives Verified 06/11/24 11:27 Physical Exam Vitals: Vital Signs Temp Pulse Pulse Resp BP BP Pulse Ox 06/11/24 13:20 98.4 F 66 16 138/57 98 06/11/24 11:47 97.8 F 69 18 150/66 99 06/11/24 09:25 78 18 146/73 98 06/11/24 08:36 98 F 80 20 172/74 98 Intake and Output 06/11/24 06/11/24 06/11/24 06:59 14:59 22:59 Other: # Voids 5 Weight 70.76 kg In general patient is alert and oriented x 3 in no distress HEENT head normocephalic and atraumatic Neck is supple no JVD no goiter no lymphadenopathy no carotid bruit Chest examination is clear to auscultation no crackles no wheezing Cardiac exam reveals regular heart sounds S1 and S2 no gallops no murmurs Abdomen is soft, with mild epigastric tenderness, no organomegaly with normal bowel sounds Extremity exam reveals no edema no cyanosis or clubbing Neurological examination reveals no gross focal deficits Results CBC & Chem 7: 06/11/24 09:05 06/11/24 09:05 Labs: Abnormal Lab Results - Last 24 Hours (Table) 06/11/24 06/11/24 Range/Units 09:05 09:05 RBC 4.24 L (4.40-5.60) 10*6/uL Hct 38.8 L (39.6-50.0) % Plt Count 107 L (140-440) 10*3/uL Immature Gran # 0.07 H (0.00-0.04) 10*3/uL BUN 36 H (9-20) mg/dL AST 77 H (17-59) U/L ALT 183 H (4-49) U/L Alkaline Phosphatase 621 H (38-126) U/L Thrombosis Risk Factor Assmnt - Choose All That Apply Any of the Below Risk Factors Present?: No Other Risk Factors: Yes Each Risk Factor Represents 3 Points: Age 75 years or older Thrombosis Risk Factor Assessment Total Risk Factor Score: 3 Thrombosis Risk Factor Assessment Level: Moderate Risk Assessment and Plan Plan: Choledocholithiasis with large stone in the common bile duct with dilated biliary system Elevated liver enzymes Underlying history of hypertension Underlying history of prostate cancer Underlying history of gastroesophageal reflux disease Underlying history of osteoarthritis Underlying history of benign prostatic hypertrophy History of degenerative disc disease with previous history of back surgery At this time patient was seen and examined Home medications reviewed Surgical consultation and GI consultation were requested Plan is to proceed with ERCP Will follow closely
[2024-06-11] MEDS: FAMOTIDINE 20 MG TAB PO SCH (20:54)
[2024-06-11] MEDS: TAMSULOSIN 0.4 MG CAP.ER.24H PO SCH (20:54)
[2024-06-11] MEDS: PRIMIDONE 250 MG TAB PO SCH (20:55)
[2024-06-12] MEDS ORDERED: PANTOPRAZOLE 40 MG TABLET PO SCH (07:30)
[2024-06-12] MEDS: lisinopriL 20 MG TAB PO SCH (08:19)
[2024-06-12] MEDS: MULTIVITAMINS, THERA 1 EACH TAB PO SCH (08:19)
[2024-06-12] MEDS: hydroCHLOROthiazide 25 MG TAB PO SCH (08:19)
[2024-06-12 08:20] LABS: Basophils # (A) 0.09 X 10*3/uL (0.00-0.10); Eosinophils # (A) 0.29 X 10*3/uL (0.04-0.35); Eosinophils % (A) 3.3 %; HCT 34.6 % (39.6-50.0); HGB 11.6 g/dL (13.0-17.0); Lymphocytes # (A) 1.98 X 10*3/uL (0.90-5.00); Lymphocytes % (A) 22.6 %; MCH 31.4 pg (27.0-32.0); MCHC 33.5 g/dL (32.0-37.0); MCV 93.8 FL (80.0-97.0); Mean Platelet Volume 11.9 FL (9.5-12.2); Monocytes # (A) 0.56 X 10*3/uL (0.20-1.00); Monocytes % (A) 6.4 %; NRBC Per 100 WBC 0 X 10*3/uL (0.00-0.01); Neutrophils # (A) 5.78 X 10*3/uL (1.80-7.70); Platelet Count 97 X 10*3/uL (140-440); RBC 3.69 X 10*6/uL (4.40-5.60); RDW 12.7 % (11.5-14.5); WBC 8.76 X 10*3/uL (4.50-10.00)
[2024-06-12 08:27] LABS: ALT 125 U/L (10-49); AST 44 U/L (14-35); Albumin 3.3 g/dL (3.8-4.9); Albumin/Globulin Ratio 1.38 Ratio (1.60-3.17); Alkaline Phosphatase 551 U/L (41-126); BUN/Creat Ratio 18.17 Ratio (12.00-20.00); Blood Urea Nitrogen 21.8 mg/dL (9.0-27.0); Calcium 8.6 mg/dL (8.7-10.3); Carbon Dioxide 26.6 mmol/L (21.6-31.8); Chloride 104 mmol/L (96-109); Globulin 2.4 g/dL (1.6-3.3); Glucose 89 mg/dL (70-110); Potassium 3.8 mmol/L (3.5-5.5); Sodium 140 mmol/L (135-145); Total Protein 5.7 g/dL (6.2-8.2)
[2024-06-12] MEDS ORDERED: ENOXAPARIN 40 MG/0.4 ML SYRINGE SQ SCH (09:00)
--- NOTE | 2024-06-12 12:11 | P.PN ---
Subjective Progress Note Date: 06/12/24 SURGICAL PROGRESS NOTE CHIEF COMPLAINT: Choledocholithiasis HISTORY OF PRESENT ILLNESS: Patient scheduled for ERCP today with GI service. He does continue to have epigastric abdominal pain. Denies any nausea or vomiting. Afebrile. WBC 8.76 total bilirubin 1.0 LFTs trending down PHYSICAL EXAM: VITAL SIGNS: Reviewed. GENERAL: Well-developed in no acute distress. ABDOMEN: Soft. Nondistended. Epigastric tenderness with palpation NEUROLOGIC: Alert and oriented. Cranial nerves II through XII grossly intact. ASSESSMENT: 1. Choledocholithiasis with large stone in common bile duct measuring 22 x 10 mm with dilated biliary system 2. Elevated LFTs 3. Epigastric abdominal pain PLAN: - Patient scheduled for ERCP today with GI service Physician Housekeeping Aide note has been reviewed by physician. Signing provider agrees with the documented findings, assessment, and plan of care. Objective - Vital Signs Vital signs: Vital Signs Temp 98.1 F 06/12/24 07:21 Pulse 67 06/12/24 08:18 Resp 16 06/12/24 07:21 BP 122/64 06/12/24 07:21 Pulse Ox 96 06/12/24 07:21 FiO2 Intake & Output 06/11/24 06/12/24 06/12/24 18:59 06:59 18:59 Intake Total 0 Balance 0 Weight 70.76 kg Intake: Oral 0 Other: # Voids 5 2 - Labs CBC & Chem 7: 06/12/24 03:17 06/12/24 03:17 Labs: Abnormal Lab Results - Last 24 Hours (Table) 06/12/24 06/12/24 Range/Units 03:17 03:17 RBC 3.69 L (4.40-5.60) X 10*6/uL Hgb 11.6 L (13.0-17.0) g/dL Hct 34.6 L (39.6-50.0) % Plt Count 97 L (140-440) X 10*3/uL Immature Gran # 0.06 H (0.00-0.04) X 10*3/uL Est GFR (CKD-EPI) 59 L (>=60) Calcium 8.6 L (8.7-10.3) mg/dL AST 44 H (14-35) U/L ALT 125 H (10-49) U/L Alkaline Phosphatase 551 H (41-126) U/L Total Protein 5.7 L (6.2-8.2) g/dL Albumin 3.3 L (3.8-4.9) g/dL Albumin/Globulin Ratio 1.38 L (1.60-3.17) Ratio
[2024-06-12] MEDS: INDOMETHACIN 100 MG SUPPOSITORY RECTAL ONE (12:37)
[2024-06-12] MEDS: SODIUM CHLORIDE 0.9% 1,000 ML IV SCH (13:03)
[2024-06-12] MEDS: LACTATED RINGERS 1,000 ML IV ONE (13:11)
[2024-06-12] MEDS: LEVOFLOXACIN 500MG-D5W PMX 500 MG in DEXTROSE/WATER 1 100ML.BAG IVPB SCH (13:16)
[2024-06-12] MEDS ORDERED: LIDOCAINE 1% INJ 10MG/ML (20 ML MDV) ONE (13:30)
[2024-06-12] MEDS ORDERED: PROPOFOL 10 MG/ML 20 ML VIAL IV ONE (13:30)
[2024-06-12] MEDS: IOPAMIDOL-300 30ML BTL MISCELLANE ONE (13:45)
--- NOTE | 2024-06-12 14:10 | P.PCN ---
Date of Procedure: 06/12/24 Procedure(s) Performed: Brief history: Patient is a 88 year-old pleasant white male scheduled for an ERCP as part of evaluation of abdominal pain and elevated serum transaminases for the last 2 days' duration. Presented to hospital with abdominal bloating and was noted to have elevated LFTs for the last 2 months. He hence had an MRCP done done on outpatient basis 3 days ago that revealed dilated CBD with a 2 cm stone in the proximal CBD. Procedure performed: ERCP with biliary sphincterotomy and balloon stone extraction Preoperative diagnoses: Elevated LFTs and choledocholithiasis IV sedation per anesthesia: Procedure: After informed consent was obtained from the patient and after the risks be nefits and complications including bleeding perforation and pancreatitis explained in detail the patient was brought into the endoscopy unit. The patient was placed in prone position and IV conscious sedation was administered by anesthesia under continuous monitoring. The Olympus side-viewing duodenoscope was then inserted into the mouth and esophagus intubated without any difficulty. The scope was gradually advanced into the stomach and duodenum. The major papilla was identified without any difficulty. Initial cannulation of the the common bile duct revealed that it was dilated measuring 2 cm in diameter. There was 1 large filling defect identified measuring approximately 2 cm in size in the proximal CBD. At this time c a wire was passed through the catheter and the guidewire was actually exchanged with a biliary sphincterotome. A sphincterotomy was performed at 11 o'clock position and this was extended to 1.5 cm in length. Following this a 15 mm balloon was passed into the proximal CBD and inflated and gently withdrawn and 2 stones were seen exiting the ampulla the first minute measuring 1 cm and the second 1 measuring 2 cm in size. Following this the maneuver was repeated 2 more times and no other filling defects seen on occlusion cholangiogram and no more stones were extracted. At this time the procedure was terminated and the patient tolerated the procedure well. Impression: Dilated common bile duct measuring 2 cm in diameter with a 2 cm filling defect in the proximal CBD status post biliary sphincterotomy and balloon stone extraction and 2 stones were extracted. Pancreatic duct intentionally not cannulated during the procedure Recommendations: The findings of this examination were discussed with the patient as well as a family. He was advised to remain on clear liquid today. Repeat labs in the morning. Surgical consultation for gallbladder surgery.
--- NOTE | 2024-06-12 14:40 | FL ---
EXAMINATION TYPE: FL ERCP DATE OF EXAM: 06/12/2024 CLINICAL HISTORY: Biliary stone. TECHNIQUE: Fluoroscopy. COMPARISON: MRCP 6 days earlier. FINDINGS: Fluoroscopic guidance was provided during ERCP procedure performed by Dr. Quintero. A total of 95 seconds of fluoroscopic time was utilized during the procedure and 3 spot images was acquired. Total dose area product (DAP) in uGy*m?, mGy*cm? (or similar: 5.6394. IMPRESSION: As Above. [facility], , 06/12/2024 2:38 PM
[2024-06-12] MEDS: ACETAMINOPHEN TAB 325 MG TAB PO PRN (16:07)
--- NOTE | 2024-06-12 16:10 | P.PN ---
Subjective Progress Note Date: 06/12/24 Alan Parra, is an 88-year-old male who presented to [facility] emergency room with a chief complaint of abdominal pain, patient describes a pressure sensation in the epigastric and right upper quadrant, he stated that his symptoms started about 1 year ago on and off , he was recently seen by Dr. Mitchell for similar complaint, MRCP was ordered and revealed large choledocholithiasis in the common bile duct with dilated biliary system, he was sent to emergency room when test results were available. He was evaluated in the emergency room vital examination on presentation revealed a temperature of 98 pulse 80 respiration 20 blood pressure 172/74 pulse ox 98% on room air Laboratory data revealed a white blood count of 8.06 hemoglobin 13.5 platelet count 107 BUN 36 creatinine 1.22 AST 77 ALT 183 alkaline phosphatase 621 Testing in the emergency room revealed KUB was done in the emergency room and did not reveal significant abnormality Patient was admitted to medical floor for further evaluation and treatment, gastroenterology consultation and surgical consultation were requested On 06/12/2024 patient was seen and examined on the medical floor he is alert and oriented x 3 in no apparent distress he is having severe shaking chills, he underwent ERCP earlier with sphincterectomy and removal of 2 stones from the common bile duct by Dr. Quintero, subsequently he returned to the floor and has been having chills with uncontrollable shaking, otherwise he denies any complaints, there is no headache or dizziness no chest pain no shortness of breath no cough no nausea or vomiting no abdominal pain no diarrhea and no urinary symptoms, at this time will obtain blood culture, will start on IV Zosyn and consult infectious disease Objective - Vital Signs Vital signs: Vital Signs Temp 97.8 F 06/12/24 13:10 Pulse 72 06/12/24 13:10 Resp 16 06/12/24 13:10 BP 154/70 06/12/24 13:10 Pulse Ox 97 06/12/24 13:10 FiO2 Intake & Output 06/11/24 06/12/24 06/12/24 18:59 06:59 18:59 Intake Total 0 500 Balance 0 500 Weight 70.76 kg Intake: IV 500 Oral 0 Other: # Voids 5 2 - Exam In general patient is alert and oriented x 3 in no distress HEENT head normocephalic and atraumatic Neck is supple no JVD no goiter no lymphadenopathy no carotid bruit Chest examination is clear to auscultation no crackles no wheezing Cardiac exam reveals regular heart sounds S1 and S2 no gallops no murmurs Abdomen is soft, with mild epigastric tenderness, no organomegaly with normal bowel sounds Extremity exam reveals no edema no cyanosis or clubbing Neurological examination reveals no gross focal deficits - Labs CBC & Chem 7: 06/12/24 03:17 06/12/24 03:17 Labs: Abnormal Lab Results - Last 24 Hours (Table) 06/12/24 06/12/24 Range/Units 03:17 03:17 RBC 3.69 L (4.40-5.60) X 10*6/uL Hgb 11.6 L (13.0-17.0) g/dL Hct 34.6 L (39.6-50.0) % Plt Count 97 L (140-440) X 10*3/uL Immature Gran # 0.06 H (0.00-0.04) X 10*3/uL Est GFR (CKD-EPI) 59 L (>=60) Calcium 8.6 L (8.7-10.3) mg/dL AST 44 H (14-35) U/L ALT 125 H (10-49) U/L Alkaline Phosphatase 551 H (41-126) U/L Total Protein 5.7 L (6.2-8.2) g/dL Albumin 3.3 L (3.8-4.9) g/dL Albumin/Globulin Ratio 1.38 L (1.60-3.17) Ratio Assessment and Plan Plan: Choledocholithiasis with large stone in the common bile duct with dilated biliary system Elevated liver enzymes Underlying history of hypertension Underlying history of prostate cancer Underlying history of gastroesophageal reflux disease Underlying history of osteoarthritis Underlying history of benign prostatic hypertrophy History of degenerative disc disease with previous history of back surgery At this time patient was seen and examined Home medications reviewed Surgical consultation and GI consultation were requested Plan is to proceed with ERCP Will follow closely
[2024-06-12] MEDS: PIPERACILLIN-TAZOBACTAM 3.375 GM in SODIUM CHLORIDE 0.9% 100 ML IVPB SCH (17:32)
--- NOTE | 2024-06-12 23:42 | P.CONS ---
History of Present Illness - Reason for Consult Consult date: 06/12/24 Cholecystitis Requesting physician: Lana Alejandro - Chief Complaint Abdominal pain x days - History of Present Illness Patient is a 88-year-old male with a past medical history significant for Cancer, GERD/Reflux, Hearing Disorder / Deafness, Hypertension, Osteoar thritis (OA), Prostate Disorder has been brought into the hospital for evaluation of epigastric pain acute on chronic that the pain has been going on for almost a year however has been getting worse recently and also have decreased oral intake for the patient has been brought into the hospital patient on presentation to the hospital was afebrile no fever have been recorded subsequently patient was nontachycardic hypotensive or hypoxic he did have a white count of 8.06 creatinine has been normal liver enzymes are elevated patient did have a KUB x-ray with nonobstructive bowel gas pattern patient has been evaluated by GI and surgical services and the patient did have a ERCP completed today with evidence of dilated common bile duct with 2 cm filling defect status post biliary sphincterotomy and balloon stone extraction infectious disease was consulted today concerning for cholecystitis and antibiotic management patient himself elevated good historian currently denies having any worsening abdominal pain nausea vomiting no chest pain shortness of breath or cough Review of Systems Positive point and negatives has been mentioned in the HPI, complete review of systems was performed and all other systems are negative Past Medical History Past Medical History: Cancer, GERD/Reflux, Hearing Disorder / Deafness, Hypertension, Osteoarthritis (OA), Prostate Disorder Additional Past Medical History / Comment(s): recently seen in [facility] w/dysphagia, has happened before, BPH, prostate cancer being monitored, arthritis in multiple joints, basal cell skin cancer face, bilateral arm/hand tremors treated with mysoline. deaf left ear, hearing loss right ear History of Any Multi-Drug Resistant Organisms: None Reported Past Surgical History: Back Surgery, Joint Replacement, Orthopedic Surgery Additional Past Surgical History / Comment(s): EGD, R total knee arthroplasty, L5 lumbar laminectomy/discectomy, skin cancer removed R mormon area, bilateral cataract removals/lens implants. Past Anesthesia/Blood Transfusion Reactions: No Reported Reaction Past Psychological History: No Psychological Hx Reported Additional Psychological History / Comment(s): . Smoking Status: Never smoker Past Alcohol Use History: None Reported Past Drug Use History: None Reported - Past Family History Brother(s) Family Medical History: Cancer Father Family Medical History: Myocardial Infarction (NM) Additional Family Medical History / Comment(s): AT AGE 53YR from a NM. Mother Additional Family Medical History / Comment(s): MOM WAS HEALTHY LIVED TILL AGE 99- FELL BROKE A HIP AND [place]ENT [place] . Medications and Allergies Home Medications Medication Instructions Recorded Confirmed Type Aspirin [Adult Low Dose Aspirin EC] 81 mg PO DAILY 12/03/15 06/11/24 History Multivitamins, Thera [Multivitamin 1 tab PO DAILY 12/03/15 06/11/24 History (formulary)] Tamsulosin HCl [Flomax] 0.4 mg PO BID 12/03/15 06/11/24 History Famotidine [Pepcid] 40 mg PO BID 05/29/20 06/11/24 History Enalapril [Vasotec] 10 mg PO DAILY 06/11/24 06/11/24 History Pantoprazole Sodium [Protonix] 40 mg PO BID-W/MEALS 06/11/24 06/11/24 History Primidone [Mysoline] 250 mg PO HS 06/11/24 06/11/24 History hydroCHLOROthiazide [Hydrodiuril] 25 mg PO DAILY 06/11/24 06/11/24 History Allergies Allergy/AdvReac Type Severity Reaction Status Date / Time pantoprazole [From Protonix] Allergy Rash/Hives Verified 06/11/24 11:27 Physical Exam Vitals: Vital Signs Temp Pulse Resp BP Pulse Ox 06/12/24 13:10 97.8 F 72 16 154/70 97 06/12/24 08:18 67 06/12/24 07:21 98.1 F 59 L 16 122/64 96 06/12/24 01:05 98 F 57 L 16 120/58 95 06/11/24 19:05 98.5 F 60 17 152/67 98 Intake and Output 06/12/24 06/12/24 06/12/24 06:59 14:59 22:59 Intake Total 0 500 Balance 0 500 Intake: IV 500 Oral 0 Other: # Voids 2 GENERAL DESCRIPTION: Elderly male lying in bed, no distress. No tachypnea or accessory muscle of respiration use. HEENT: Shows Pallor , no scleral icterus. Oral mucous membrane is dry. No pharyngeal erythema or thrush NECK: Trachea central, no thyromegaly. LUNGS: Unlabored breathing. Clear to auscultation anteriorly. No wheeze or crackle. HEART: S1, S2, regular rate and rhythm. No loud murmur ABDOMEN: Soft, mild tenderness EXTREMITIES: No edema of feet. SKIN: No rash, no masses palpable. NEUROLOGICAL: The patient is awake, alert, mood and affect normal. Results CBC & Chem 7: 06/13/24 05:11 06/13/24 05:11 Labs: Abnormal Lab Results - Last 24 Hours (Table) 06/12/24 06/12/24 Range/Units 03:17 03:17 RBC 3.69 L (4.40-5.60) X 10*6/uL Hgb 11.6 L (13.0-17.0) g/dL Hct 34.6 L (39.6-50.0) % Plt Count 97 L (140-440) X 10*3/uL Immature Gran # 0.06 H (0.00-0.04) X 10*3/uL Est GFR (CKD-EPI) 59 L (>=60) Calcium 8.6 L (8.7-10.3) mg/dL AST 44 H (14-35) U/L ALT 125 H (10-49) U/L Alkaline Phosphatase 551 H (41-126) U/L Total Protein 5.7 L (6.2-8.2) g/dL Albumin 3.3 L (3.8-4.9) g/dL Albumin/Globulin Ratio 1.38 L (1.60-3.17) Ratio Assessment and Plan (1) Cholecystitis Current Visit: Yes Status: Acute Code(s): K81.9 - CHOLECYSTITIS, UNSPECIFIED SNOMED Code(s): 10516846 (2) Choledocholithiasis Current Visit: Yes Status: Acute Code(s): K80.50 - CALCULUS OF BILE DUCT W/O CHOLANGITIS OR CHOLECYST W/O OBST SNOMED Code(s): 048329393 (3) Transaminitis Current Visit: Yes Status: Acute Code(s): R74.01 - ELEVATION OF LEVELS OF LIVER TRANSAMINASE LEVELS SNOMED Code(s): 253460920 Plan: 1patient presented hospital abdominal pain in this patient who did have evidence of elevated liver enzymes and evidence of choledocholithiasis status post ERCP and sphincterotomy and extraction of 2 stones concerning for cholangitis with cholecystitis likely will need to cover for the enteric gram- negative pathogen 2-patient will be treated with Zosyn 3.37 g every 8 hours 3-surgical team on the case and await their recommendation regarding timing for cholecystectomy We will follow on clinical condition and cultures to further adjust medication if needed Thank you for this consultation we will follow the patient along with you Dictation was produced using Smart Panel dictation software. please excuse any grammatical, word or spelling errors. Time with Patient: Greater than 30
[2024-06-13 08:39] LABS: Basophils # (A) 0.06 X 10*3/uL (0.00-0.10); Basophils % (A) 0.3 %; Eosinophils # (A) 0.04 X 10*3/uL (0.04-0.35); Eosinophils % (A) 0.2 %; HCT 35.9 % (39.6-50.0); Lymphocytes # (A) 1.92 X 10*3/uL (0.90-5.00); Lymphocytes % (A) 9.8 %; MCH 31.3 pg (27.0-32.0); MCHC 33.4 g/dL (32.0-37.0); MCV 93.7 FL (80.0-97.0); Mean Platelet Volume 12.5 FL (9.5-12.2); Monocytes # (A) 0.87 X 10*3/uL (0.20-1.00); Monocytes % (A) 4.4 %; NRBC Per 100 WBC 0 X 10*3/uL (0.00-0.01); Neutrophils # (A) 16.62 X 10*3/uL (1.80-7.70); Neutrophils % (A) 84.9 %; Platelet Count 100 X 10*3/uL (140-440); RBC 3.83 X 10*6/uL (4.40-5.60); RDW 12.8 % (11.5-14.5); WBC 19.58 X 10*3/uL (4.50-10.00)
[2024-06-13 08:57] LABS: ALT 208 U/L (10-49); AST 140 U/L (14-35); Albumin 3.3 g/dL (3.8-4.9); Alkaline Phosphatase 570 U/L (41-126); BUN/Creat Ratio 12.82 Ratio (12.00-20.00); Blood Urea Nitrogen 21.8 mg/dL (9.0-27.0); Calcium 8.5 mg/dL (8.7-10.3); Carbon Dioxide 28.5 mmol/L (21.6-31.8); Chloride 101 mmol/L (96-109); Globulin 2.2 g/dL (1.6-3.3); Glucose 93 mg/dL (70-110); Potassium 3.7 mmol/L (3.5-5.5); Sodium 137 mmol/L (135-145); Total Bilirubin 4.2 mg/dL (0.3-1.2); Total Protein 5.5 g/dL (6.2-8.2)
--- NOTE | 2024-06-13 09:21 | P.PN ---
Subjective Progress Note Date: 06/13/24 Alan Parra, is an 88-year-old male who presented to [facility] emergency room with a chief complaint of abdominal pain, patient describes a pressure sensation in the epigastric and right upper quadrant, he stated that his symptoms started about 1 year ago on and off , he was recently seen by Dr. Mitchell for similar complaint, MRCP was ordered and revealed large choledocholithiasis in the common bile duct with dilated biliary system, he was sent to emergency room when test results were available. He was evaluated in the emergency room vital examination on presentation revealed a temperature of 98 pulse 80 respiration 20 blood pressure 172/74 pulse ox 98% on room air Laboratory data revealed a white blood count of 8.06 hemoglobin 13.5 platelet count 107 BUN 36 creatinine 1.22 AST 77 ALT 183 alkaline phosphatase 621 Testing in the emergency room revealed KUB was done in the emergency room and did not reveal significant abnormality Patient was admitted to medical floor for further evaluation and treatment, gastroenterology consultation and surgical consultation were requested On 06/12/2024 patient was seen and examined on the medical floor he is alert and oriented x 3 in no apparent distress he is having severe shaking chills, he underwent ERCP earlier with sphincterectomy and removal of 2 stones from the common bile duct by Dr. Quintero, subsequently he returned to the floor and has been having chills with uncontrollable shaking, otherwise he denies any complaints, there is no headache or dizziness no chest pain no shortness of breath no cough no nausea or vomiting no abdominal pain no diarrhea and no urinary symptoms, at this time will obtain blood culture, will start on IV Zosyn and consult infectious disease On 06/13/2024 patient is alert and oriented x 3. Patient feels much improved today did have fever yesterday white count is increasing to 19. Patient was started on IV Zosyn infectious disease services are following awaiting further recommendations from surgical services. Patient denies chest pain. Patient denies nausea vomiting or diarrhea. Patient denies any urinary burning or frequency. Current vital signs temp 97.4, heart rate 52, respiratory rate 16, blood pressure 118/56 Objective - Vital Signs Vital signs: Vital Signs Temp 97.4 F L 06/13/24 07:13 Pulse 52 L 06/13/24 07:13 Resp 16 06/13/24 07:13 BP 118/56 06/13/24 07:13 Pulse Ox 96 06/13/24 07:13 FiO2 Intake & Output 06/12/24 06/13/24 06/13/24 18:59 06:59 18:59 Intake Total 900 Balance 900 Intake: IV 500 Oral 400 Other: Voiding Method Toilet # Voids 2 1 - Exam In general patient is alert and oriented x 3 in no distress HEENT head normocephalic and atraumatic Neck is supple no JVD no goiter no lymphadenopathy no carotid bruit Chest examination is clear to auscultation no crackles no wheezing Cardiac exam reveals regular heart sounds S1 and S2 no gallops no murmurs Abdomen is soft, with mild epigastric tenderness, no organomegaly with normal bowel sounds Extremity exam reveals no edema no cyanosis or clubbing Neurological examination reveals no gross focal deficits - Labs CBC & Chem 7: 06/13/24 05:11 06/13/24 05:11 Labs: Abnormal Lab Results - Last 24 Hours (Table) 06/13/24 06/13/24 Range/Units 05:11 05:11 WBC 19.58 H (4.50-10.00) X 10*3/uL RBC 3.83 L (4.40-5.60) X 10*6/uL Hgb 12.0 L (13.0-17.0) g/dL Hct 35.9 L (39.6-50.0) % Plt Count 100 L (140-440) X 10*3/uL MPV 12.5 H (9.5-12.2) FL Immature Gran # 0.07 H (0.00-0.04) X 10*3/uL Neutrophils # 16.62 H (1.80-7.70) X 10*3/uL Creatinine 1.7 H (0.6-1.5) mg/dL Est GFR (CKD-EPI) 39 L (>=60) Calcium 8.5 L (8.7-10.3) mg/dL Total Bilirubin 4.2 H (0.3-1.2) mg/dL AST 140 H (14-35) U/L ALT 208 H (10-49) U/L Alkaline Phosphatase 570 H (41-126) U/L Total Protein 5.5 L (6.2-8.2) g/dL Albumin 3.3 L (3.8-4.9) g/dL Albumin/Globulin Ratio 1.50 L (1.60-3.17) Ratio Assessment and Plan Plan: Choledocholithiasis with large stone in the common bile duct with dilated biliary system Elevated liver enzymes Febrile and leukocytosis patient started on Zosyn infectious disease services consulted Underlying history of hypertension Underlying history of prostate cancer Underlying history of gastroesophageal reflux disease Underlying history of osteoarthritis Underlying history of benign prostatic hypertrophy History of degenerative disc disease with previous history of back surgery At this time patient was seen and examined Home medications reviewed Surgical consultation and GI consultation were requested Status post ERCP Will follow closely
[2024-06-13] MEDS: FAMOTIDINE 20 MG TAB PO SCH (09:33)
--- NOTE | 2024-06-13 14:17 | P.PN ---
Subjective Progress Note Date: 06/13/24 SURGICAL PROGRESS NOTE CHIEF COMPLAINT: Choledocholithiasis HISTORY OF PRESENT ILLNESS: Patient is status post ERCP with 2 stones removed. Patient reports his abdominal pain has improved. Patient did have a fever of 101 last night. WBC did go up to 19. Total bilirubin elevated at 4.2 LFTs elevated. PHYSICAL EXAM: VITAL SIGNS: Reviewed. GENERAL: Well-developed in no acute distress. ABDOMEN: Soft. Nondistended. Epigastric tenderness with palpation NEUROLOGIC: Alert and oriented. Cranial nerves II through XII grossly intact. ASSESSMENT: 1. Choledocholithiasis status post ERCP with stents removed. 2. Elevated LFTs 3. Epigastric abdominal pain PLAN: -Patient's total bilirubin and LFTs are trending upwards. Case discussed with GI service. They are recommending repeat ERCP possibly tomorrow. -Continue to monitor -Continue antibiotics -No plans for cholecystectomy at this time -Continue to observe patient Physician Computer Aided Design Drafter note has been reviewed by physician. Signing provider agrees with the documented findings, assessment, and plan of care. I have personally seen and examined the patient, reviewed the SLATE PICKER /PAs history, exam and MDM and agree with the assessment and plan as written. Based on total visit time, I have performed more than 50% of the visit. As above: Patient feels better. No further right upper quadrant discomfort. Labs noted. Repeat labs tomorrow. Possible repeat ERCP per GI. Follow-up as outpatient to discuss options of cholecystectomy however at this time would lean towards observation. Objective - Vital Signs Vital signs: Vital Signs Temp 97.4 F L 06/13/24 07:13 Pulse 52 L 06/13/24 07:13 Resp 16 06/13/24 07:13 BP 118/56 06/13/24 07:13 Pulse Ox 96 06/13/24 07:13 FiO2 Intake & Output 06/12/24 06/13/24 06/13/24 18:59 06:59 18:59 Intake Total 900 Balance 900 Intake: IV 500 Oral 400 Other: Voiding Method Toilet Urinal # Voids 2 1 1 - Labs CBC & Chem 7: 06/13/24 05:11 06/13/24 05:11 Labs: Abnormal Lab Results - Last 24 Hours (Table) 06/13/24 06/13/24 Range/Units 05:11 05:11 WBC 19.58 H (4.50-10.00) X 10*3/uL RBC 3.83 L (4.40-5.60) X 10*6/uL Hgb 12.0 L (13.0-17.0) g/dL Hct 35.9 L (39.6-50.0) % Plt Count 100 L (140-440) X 10*3/uL MPV 12.5 H (9.5-12.2) FL Immature Gran # 0.07 H (0.00-0.04) X 10*3/uL Neutrophils # 16.62 H (1.80-7.70) X 10*3/uL Creatinine 1.7 H (0.6-1.5) mg/dL Est GFR (CKD-EPI) 39 L (>=60) Calcium 8.5 L (8.7-10.3) mg/dL Total Bilirubin 4.2 H (0.3-1.2) mg/dL AST 140 H (14-35) U/L ALT 208 H (10-49) U/L Alkaline Phosphatase 570 H (41-126) U/L Total Protein 5.5 L (6.2-8.2) g/dL Albumin 3.3 L (3.8-4.9) g/dL Albumin/Globulin Ratio 1.50 L (1.60-3.17) Ratio
--- NOTE | 2024-06-13 16:30 | P.PN ---
Subjective Progress Note Date: 06/13/24 Principal diagnosis: Reason for follow-up is sepsis cholangitis/cholecystitis Patient is a 88-year-old male with a past medical history significant for Cancer, GERD/Reflux, Hearing Disorder / Deafness, Hypertension, Osteoarthritis (OA), Prostate Disorder has been brought into the hospital for evaluation of epigastric pain acute on chronic patient did have evidence of choledocholithiasis requiring ERCP and sphincterotomy. On today's evaluation that is 06/13/2024,the patient did spike a fever last evening of 101 F however the patient is afebrile this morning, patient is on room air not requiring supplemental oxygen and denies any shortness of breath no chest pain or cough.Patient denies having any nausea or vomiting, no abdominal pain and no diarrhea has been reported. Patient white count is 19.58, creatinine is 1.7 liver enzymes remains to be elevated Objective - Vital Signs Vital signs: Vital Signs Temp 98.0 F 06/13/24 13:44 Pulse 62 06/13/24 13:44 Resp 16 06/13/24 13:44 BP 109/52 06/13/24 13:44 Pulse Ox 96 06/13/24 13:44 FiO2 Intake & Output 06/12/24 06/13/24 06/13/24 18:59 06:59 18:59 Intake Total 900 Balance 900 Intake: IV 500 Oral 400 Other: Voiding Method Toilet Urinal # Voids 2 1 1 - Exam GENERAL DESCRIPTION: An elderly male lying in bed in no distress RESPIRATORY SYSTEM: Unlabored breathing , decreased breath sounds at bases HEART: S1 S2 regular rate and rhythm , ABDOMEN: Soft , no tenderness EXTREMITIES: No edema feet - Labs CBC & Chem 7: 06/13/24 05:11 06/13/24 05:11 Labs: Abnormal Lab Results - Last 24 Hours (Table) 06/13/24 06/13/24 Range/Units 05:11 05:11 WBC 19.58 H (4.50-10.00) X 10*3/uL RBC 3.83 L (4.40-5.60) X 10*6/uL Hgb 12.0 L (13.0-17.0) g/dL Hct 35.9 L (39.6-50.0) % Plt Count 100 L (140-440) X 10*3/uL MPV 12.5 H (9.5-12.2) FL Immature Gran # 0.07 H (0.00-0.04) X 10*3/uL Neutrophils # 16.62 H (1.80-7.70) X 10*3/uL Creatinine 1.7 H (0.6-1.5) mg/dL Est GFR (CKD-EPI) 39 L (>=60) Calcium 8.5 L (8.7-10.3) mg/dL Total Bilirubin 4.2 H (0.3-1.2) mg/dL AST 140 H (14-35) U/L ALT 208 H (10-49) U/L Alkaline Phosphatase 570 H (41-126) U/L Total Protein 5.5 L (6.2-8.2) g/dL Albumin 3.3 L (3.8-4.9) g/dL Albumin/Globulin Ratio 1.50 L (1.60-3.17) Ratio Assessment and Plan (1) Cholecystitis Current Visit: Yes Status: Acute Code(s): K81.9 - CHOLECYSTITIS, UNSPECIFIED SNOMED Code(s): 43508184 (2) Choledocholithiasis Current Visit: Yes Status: Acute Code(s): K80.50 - CALCULUS OF BILE DUCT W/O CHOLANGITIS OR CHOLECYST W/O OBST SNOMED Code(s): 038084750 (3) Transaminitis Current Visit: Yes Status: Acute Code(s): R74.01 - ELEVATION OF LEVELS OF LIVER TRANSAMINASE LEVELS SNOMED Code(s): 676578948 (4) Sepsis Current Visit: Yes Status: Acute Code(s): A41.9 - SEPSIS, UNSPECIFIED ORGANISM SNOMED Code(s): 80301282 (5) Cholangitis Current Visit: Yes Status: Acute Code(s): K83.09 - OTHER CHOLANGITIS SNOMED Code(s): 19480335 Plan: 1patient presented hospital abdominal pain in this patient who did have evidence of elevated liver enzymes and evidence of choledocholithiasis status post ERCP and sphincterotomy and extraction of 2 stones concerning for cholangitis with cholecystitis likely will need to cover for the enteric gram- negative pathogen 2-patient did have a fever as well as elevated white count meeting ready for SIRS source likely cholangitis in this patient who did have choledocholithiasis requiring ERCP and sphincterotomy, blood culture has been obtained results will be followed patient is broadly treated with the Zosyn and monitor clinical course closely Family at the bedside question answered Dictation was produced using True Pivot dictation software. please excuse any gr ammatical, word or spelling errors.
--- NOTE | 2024-06-13 17:47 | P.PN ---
Subjective Progress Note Date: 06/13/24 Principal diagnosis: Choledocholithiasis This a pleasant 88-year-old male with past medical history including prostate cancer, hypertension, GERD and esophagitis with multiple upper endoscopies in the past who has been experiencing epigastric discomfort for the last several months with apparent elevated LFTs and he has been following with his primary care physician Dr. Mitchell. Patient appears to be somewhat of a poor historian but he has multiple family members at the bedside who states that he has been following with Dr. Denise since at least March having blood work done which has showed elevated liver enzymes. He underwent outpatient CT of the abdomen pelvis on 06/03/2024 that reported biliary dilation with a 1.2 cm lesion in the common bile duct at the pancreatic head concerning for possible neoplasm versus CBD stone. Apparently then patient was sent for MRCP which he had undergone 06/06/2024 with findings of large CBD stone. Family states they were told by Dr. Mitchell to make an appointment with a general surgeon and have an appointment scheduled next week with Dr. Iglesias, However, he continued to have epigastric pain so they came in for further evaluation. He was noted to have elevated LFTs, previous imaging was reviewed and gastroenterology was consulted for choledocholithiasis. Patient is known to the gastroenterology office and has seen Dr. Quintero and Reyna in the past for upper endoscopies for ongoing GERD and esophagitis. Last upper endoscopy in [address] Quintero with findings of distal esophageal stricture status post balloon dilation and no evidence of esophagitis. He had an EGD in May 2020 with findings of Schatzki ring status post dilation, EGD in 2018 with findings of gastritis and LA grade a esophagitis. He continues to state he has abdominal discomfort in the epigastric region, no nausea or vomiting. Today's labs total bilirubin 1.2 AST 77 ALT 183 alkaline phosphatase 621 lipase 191. June 13, 2024 Patient seen and examined today as a follow-up. Yesterday he underwent ERCP with findings of dilated common bile duct with filling defect in proximal CBD status post biliary sphincterotomy and balloon stone extraction with 2 stones extracted. Patient states epigastric pain is improved. He is sitting up in bed. Tolerating clear liquid diet. Repeat labs today did show leukocytosis with a WBC of 19.5 hemoglobin 12.0 platelet count 100,000 he also had increase in total bilirubin to 4.2 AST to 148 ALT 208 alkaline phosphatase 570. Patient did spike fever through the night with a max temp of 101.0. He has been afebrile today. He is on Zosyn. Objective - Vital Signs Vital signs: Vital Signs Temp 97.4 F L 06/13/24 07:13 Pulse 52 L 06/13/24 07:13 Resp 16 06/13/24 07:13 BP 118/56 06/13/24 07:13 Pulse Ox 96 06/13/24 07:13 FiO2 Intake & Output 06/12/24 06/13/24 06/13/24 18:59 06:59 18:59 Intake Total 900 Balance 900 Intake: IV 500 Oral 400 Other: Voiding Method Toilet # Voids 2 1 1 - Exam General appearance: The patient is alert, oriented, appears in no acute distress. HET: Head is normocephalic and atraumatic. Conjunctiva pink. Sclera anicteric. Neck: Supple without lymphadenopathy. Abdomen: Soft, nontender, nondistended. Extremities: Normal skin color and turgor. No pedal edema Skin: No rashes, no jaundice Neurological: No focal deficits. Alert and oriented. - Labs CBC & Chem 7: 06/13/24 05:11 06/13/24 05:11 Labs: Abnormal Lab Results - Last 24 Hours (Table) 06/13/24 06/13/24 Range/Units 05:11 05:11 WBC 19.58 H (4.50-10.00) X 10*3/uL RBC 3.83 L (4.40-5.60) X 10*6/uL Hgb 12.0 L (13.0-17.0) g/dL Hct 35.9 L (39.6-50.0) % Plt Count 100 L (140-440) X 10*3/uL MPV 12.5 H (9.5-12.2) FL Immature Gran # 0.07 H (0.00-0.04) X 10*3/uL Neutrophils # 16.62 H (1.80-7.70) X 10*3/uL Creatinine 1.7 H (0.6-1.5) mg/dL Est GFR (CKD-EPI) 39 L (>=60) Calcium 8.5 L (8.7-10.3) mg/dL Total Bilirubin 4.2 H (0.3-1.2) mg/dL AST 140 H (14-35) U/L ALT 208 H (10-49) U/L Alkaline Phosphatase 570 H (41-126) U/L Total Protein 5.5 L (6.2-8.2) g/dL Albumin 3.3 L (3.8-4.9) g/dL Albumin/Globulin Ratio 1.50 L (1.60-3.17) Ratio Assessment and Plan (1) Choledocholithiasis Narrative/Plan: 88-year-old male who states he has been having epigastric pain for last several months and has been following with his primary care physician Dr. Mitchell with notable elevated bilirubin and LFTs since March of this year. He has had outpatient imaging ordered by his PCP with most recent MRCP done on 05/07/2024 with reported large CBD stone. Patient's epigastric pain likely secondary to choledocholithiasis. Due to size of stone ERCP discussed with patient and his family at the bedside including his that CBD stone is quite large and patient may be better off being transferred to a tertiary center with advanced assembler dc field yoke. Patient's family states that they would like him to stay here and undergo ERCP. Discussed with patient's will proceed with ERCP tomorrow and if unable to remove stone patient will need to be transferred to tertiary center. Risks and benefits discussed with patient and . Patient underwent ERCP with noted common bile duct dilation and filling defect status post balloon sphincterotomy with 2 stones were removed. However today patient did have increase in liver enzymes which can be secondary to procedure itself but also need to consider that there could be further stone not seen. Patient also with fever yesterday evening and leukocytosis. Continue treatment with IV antibiotics. May need to consider repeat ERCP if labs do not improve. Current Visit: Yes Status: Acute Code(s): K80.50 - CALCULUS OF BILE DUCT W/O CHOLANGITIS OR CHOLECYST W/O OBST SNOMED Code(s): 001158537 (2) Transaminitis Current Visit: Yes Status: Acute Code(s): R74.01 - ELEVATION OF LEVELS OF LIVER TRANSAMINASE LEVELS SNOMED Code(s): 263122341 (3) Epigastric pain Current Visit: Yes Status: Acute Code(s): R10.13 - EPIGASTRIC PAIN SNOMED Code(s): 63668958 (4) GERD (gastroesophageal reflux disease) Current Visit: No Status: Acute Code(s): K21.9 - GASTRO-ESOPHAGEAL REFLUX DISEASE WITHOUT ESOPHAGITIS SNOMED Code(s): 116962119 Plan: 1. Continue symptomatic and supportive care 2. Patient may have clear liquid diet, n.p.o. after midnight 3. Repeat CBC, CMP tomorrow morning 4. Protonix 40 mg daily for GI prophylaxis 5. Patient is status post ERCP with stone removal 6. Continue IV antibiotics 7. Continue with recommendations from general surgery 8. No anticoagulation 9. Patient will be reevaluated in the morning, may need to consider repeat ERCP if labs are not improved. This was discussed with both patient and his family at the bedside. Thank you for this consultation, we will continue to follow. Dr. Joan Quintero I agree with the dictator's note, documented as a scribe by Beatriz Avilez.
[2024-06-14 02:10] VITALS: RESP 16
[2024-06-14 04:31] LABS: ALT 149 U/L (4-49); AST 58 U/L (17-59); African American GFR (CKD) 45 (>60 ml/min/1.73 sqM); Albumin 2.9 g/dL (3.5-5.0); Albumin/Globulin Ratio 1.1; Alkaline Phosphatase 416 U/L (38-126); Anion Gap 8 mmol/L; Blood Urea Nitrogen 16 mg/dL (9-20); Calcium 8.9 mg/dL (8.4-10.2); Carbon Dioxide 27 mmol/L (22-30); Chloride 101 mmol/L (98-107); Globulin 2.7 g/dL; Glucose 100 mg/dL (74-99); Non-African American GFR(CKD) 39 (>60 ml/min/1.73 sqM); Potassium 3.6 mmol/L (3.5-5.1); Sodium 136 mmol/L (137-145); Total Bilirubin 1.7 mg/dL (0.2-1.3); Total Protein 5.6 g/dL (6.3-8.2)
[2024-06-14 04:57] LABS: Basophils # (A) 0.08 10*3/uL (0.00-0.10); Basophils % (A) 0.8 %; Eosinophils # (A) 0.16 10*3/uL (0.04-0.35); Eosinophils % (A) 1.5 %; HGB 11.7 g/dL (13.0-17.0); Lymphocytes # (A) 1.43 10*3/uL (0.90-5.00); Lymphocytes % (A) 13.8 %; MCH 31.5 pg (27.0-32.0); MCHC 34.4 g/dL (32.0-37.0); MCV 91.6 fL (80.0-97.0); Mean Platelet Volume 12.5 fL (9.5-12.2); Monocytes # (A) 0.59 10*3/uL (0.20-1.00); Monocytes % (A) 5.7 %; Neutrophils # (A) 8.05 10*3/uL (1.80-7.70); Neutrophils % (A) 77.8 %; RBC 3.71 10*6/uL (4.40-5.60); RDW 12.5 % (11.5-14.5); WBC 10.35 10*3/uL (4.50-10.00)
[2024-06-14 07:16] LABS: Appearance,Urine Clear (Clear); Bilirubin,Urine Negative (Negative); Blood,Urine Negative (Negative); Color,Urine Colorless; Glucose,Urine (UA) Negative (Negative); Ketones,Urine Negative (Negative); Leukocyte Esterase,Urine Negative (Negative); Nitrite,Urine Negative (Negative); PH, Urine 5.5 (5.0-8.0); Protein,Urine Negative (Negative); Specific Gravity,Urine 1.007 (1.001-1.035); Urobilinogen,Urine <2.0 mg/dL (<2.0)
--- NOTE | 2024-06-14 07:58 | P.PN ---
Subjective Progress Note Date: 06/14/24 Principal diagnosis: Choledocholithiasis This a pleasant 88-year-old male with past medical history including prostate cancer, hypertension, GERD and esophagitis with multiple upper endoscopies in the past who has been experiencing epigastric discomfort for the last several months with apparent elevated LFTs and he has been following with his primary care physician Dr. Mitchell. Patient appears to be somewhat of a poor historian but he has multiple family members at the bedside who states that he has been following with Dr. Denise since at least March having blood work done which has showed elevated liver enzymes. He underwent outpatient CT of the abdomen pelvis on 06/03/2024 that reported biliary dilation with a 1.2 cm lesion in the common bile duct at the pancreatic head concerning for possible neoplasm versus CBD stone. Apparently then patient was sent for MRCP which he had undergone 06/06/2024 with findings of large CBD stone. Family states they were told by Dr. Mitchell to make an appointment with a general surgeon and have an appointment scheduled next week with Dr. Iglesias, However, he continued to have epigastric pain so they came in for further evaluation. He was noted to have elevated LFTs, previous imaging was reviewed and gastroenterology was consulted for choledocholithiasis. Patient is known to the gastroenterology office and has seen Dr. Quintero and Reyna in the past for upper endoscopies for ongoing GERD and esophagitis. Last upper endoscopy in [address] Quintero with findings of distal esophageal stricture status post balloon dilation and no evidence of esophagitis. He had an EGD in May 2020 with findings of Schatzki ring status post dilation, EGD in 2018 with findings of gastritis and LA grade a esophagitis. He continues to state he has abdominal discomfort in the epigastric region, no nausea or vomiting. Today's labs total bilirubin 1.2 AST 77 ALT 183 alkaline phosphatase 621 lipase 191. June 13, 2024 Patient seen and examined today as a follow-up. Yesterday he underwent ERCP with findings of dilated common bile duct with filling defect in proximal CBD status post biliary sphincterotomy and balloon stone extraction with 2 stones extracted. Patient states epigastric pain is improved. He is sitting up in bed. Tolerating clear liquid diet. Repeat labs today did show leukocytosis with a WBC of 19.5 hemoglobin 12.0 platelet count 100,000 he also had increase in total bilirubin to 4.2 AST to 148 ALT 208 alkaline phosphatase 570. Patient did spike fever through the night with a max temp of 101.0. He has been afebrile today. He is on Zosyn. June 14, 2024 Patient seen and examined today as a follow-up. He denies any abdominal pain. States that epigastric pain is resolved. Denies any nausea or vomiting. Repeat liver enzymes are trending down. Today bilirubin is 1.7 AST 58 ALT 149 and alkaline phosphatase 416. Leukocytosis improving, patient has been afebrile. No plans for cholecystectomy at this time per general surgery. Plan is for follow-up in 1 week. Objective - Vital Signs Vital signs: Vital Signs Temp 98.5 F 06/14/24 01:00 Pulse 59 L 06/14/24 01:00 Resp 16 06/14/24 01:00 BP 114/54 06/14/24 01:00 Pulse Ox 96 06/14/24 01:00 FiO2 Intake & Output 06/13/24 06/13/24 06/14/24 06:59 18:59 06:59 Other: Voiding Method Toilet Urinal Toilet Urinal # Voids 1 1 1 - Exam General appearance: The patient is alert, oriented, appears in no acute distress. HET: Head is normocephalic and atraumatic. Conjunctiva pink. Sclera anicteric. Neck: Supple without lymphadenopathy. Abdomen: Soft, nontender, nondistended. Extremities: Normal skin color and turgor. No pedal edema Skin: No rashes, no jaundice Neurological: No focal deficits. Alert and oriented. - Labs CBC & Chem 7: 06/14/24 03:59 06/14/24 03:59 Labs: Abnormal Lab Results - Last 24 Hours (Table) 06/13/24 06/13/24 06/14/24 Range/Units 05:11 05:11 03:59 WBC 19.58 H 10.35 H (4.50-10.00) X 10*3/uL RBC 3.83 L 3.71 L (4.40-5.60) X 10*6/uL Hgb 12.0 L 11.7 L (13.0-17.0) g/dL Hct 35.9 L 34.0 L (39.6-50.0) % Plt Count 100 L (140-440) X 10*3/uL MPV 12.5 H 12.5 H (9.5-12.2) FL Immature Gran # 0.07 H (0.00-0.04) X 10*3/uL Neutrophils # 16.62 H (1.80-7.70) X 10*3/uL Sodium (137-145) mmol/L Creatinine 1.7 H (0.6-1.5) mg/dL Est GFR (CKD-EPI) 39 L (>=60) Glucose (74-99) mg/dL Calcium 8.5 L (8.7-10.3) mg/dL Total Bilirubin 4.2 H (0.3-1.2) mg/dL AST 140 H (14-35) U/L ALT 208 H (10-49) U/L Alkaline Phosphatase 570 H (41-126) U/L Total Protein 5.5 L (6.2-8.2) g/dL Albumin 3.3 L (3.8-4.9) g/dL Albumin/Globulin Ratio 1.50 L (1.60-3.17) Ratio // Range/Units 03:59 WBC (4.50-10.00) X 10*3/uL RBC (4.40-5.60) X 10*6/uL Hgb (13.0-17.0) g/dL Hct (39.6-50.0) % Plt Count (140-440) X 10*3/uL MPV (9.5-12.2) FL Immature Gran # (0.00-0.04) X 10*3/uL Neutrophils # (1.80-7.70) X 10*3/uL Sodium 136 L (137-145) mmol/L Creatinine 1.58 H (0.6-1.5) mg/dL Est GFR (CKD-EPI) (>=60) Glucose 100 H (74-99) mg/dL Calcium (8.7-10.3) mg/dL Total Bilirubin 1.7 H (0.3-1.2) mg/dL AST (14-35) U/L ALT 149 H (10-49) U/L Alkaline Phosphatase 416 H (41-126) U/L Total Protein 5.6 L (6.2-8.2) g/dL Albumin 2.9 L (3.8-4.9) g/dL Albumin/Globulin Ratio (1.60-3.17) Ratio Microbiology - Last 24 Hours (Table) 06/12/24 16:40 Blood Culture - Preliminary Blood Assessment and Plan (1) Choledocholithiasis Narrative/Plan: 88-year-old male who states he has been having epigastric pain for last several months and has been following with his primary care physician Dr. Mitchell with notable elevated bilirubin and LFTs since March of this year. He has had outpatient imaging ordered by his PCP with most recent MRCP done on 05/07/2024 with reported large CBD stone. Patient's epigastric pain likely secondary to choledocholithiasis. Due to size of stone ERCP discussed with patient and his family at the bedside including his that CBD stone is quite large and patient may be better off being transferred to a tertiary center with advanced management consulting. Patient's family states that they would like him to stay here and undergo ERCP. Discussed with patient's will proceed with ERCP tomorrow and if unable to remove stone patient will need to be transferred to tertiary center. Risks and benefits discussed with patient and . Patient underwent ERCP with noted common bile duct dilation and filling defect status post balloon sphincterotomy with 2 stones were removed. However today patient did have increase in liver enzymes which can be secondary to procedure i tself but also need to consider that there could be further stone not seen. Patient also with fever yesterday evening and leukocytosis. Continue treatment with IV antibiotics. May need to consider repeat ERCP if labs do not improve. Current Visit: Yes Status: Acute Code(s): K80.50 - CALCULUS OF BILE DUCT W/O CHOLANGITIS OR CHOLECYST W/O OBST SNOMED Code(s): 047373608 (2) Transaminitis Narrative/Plan: Liver enzymes trending down. Likely elevation reactive to procedure. Recommend follow-up with gastroenterology within a week with outpatient labs ordered. Current Visit: Yes Status: Acute Code(s): R74.01 - ELEVATION OF LEVELS OF LIVER TRANSAMINASE LEVELS SNOMED Code(s): 839261840 (3) Epigastric pain Current Visit: Yes Status: Acute Code(s): R10.13 - EPIGASTRIC PAIN SNOMED Code(s): 06432731 (4) GERD (gastroesophageal reflux disease) Current Visit: No Status: Acute Code(s): K21.9 - GASTRO-ESOPHAGEAL REFLUX DISEASE WITHOUT ESOPHAGITIS SNOMED Code(s): 797588078 Plan: 1. Continue symptomatic and supportive care 2. Patient may advance to low-fat diet 3. Continue Protonix 40 mg daily for GI prophylaxis 4. Continue antibiotics, recommend outpatient antibiotics with Augmentin for 10 days 5. Patient is status post ERCP with stone removal 6. Continue with recommendations from general surgery 7. No plans for repeat ERCP at this time Patient is cleared from gastroenterology for discharge. Follow-up within 1 week with May Lang NP. Repeat CBC CMP prior to appointment. Thank you for this consultation, patient is cleared from gastroenterology for discharge. Dr. Joan Quintero I agree with the dictator's note, documented as a scribe by Beatriz Avilez.
[2024-06-14 08:03] LABS: Platelet Count 80 10*3/uL (140-440)
[2024-06-14 08:07] VITALS: BP 137/64; PULSE 66; TEMP 97.8
--- NOTE | 2024-06-14 11:44 | P.DS ---
Providers Date of admission: 06/11/24 10:52 Expected date of discharge: 06/14/24 Attending physician: Lana Alejandro Consults: 06/11/24 10:51 Consult Physician Routine Consulting Provider: Danial Aparicio Consult Reason/Comments: choledocho Do you want consulting provider notified?: Already Contacted Consult Physician Routine Consulting Provider: Hillary Quintero Consult Reason/Comments: choledocho Do you want consulting provider notified?: Yes 06/12/24 16:07 Consult Physician Routine Consulting Provider: Bjorn Ramirez Consult Reason/Comments: Cholecystitis Do you want consulting provider notified?: Yes Primary care physician: Patience Mitchell [facility] Course: Discharge diagnosis Choledocholithiasis with large stone in the common bile duct with dilated biliary system. Status post ERCP Elevated liver enzymes Febrile and leukocytosis patient started on Zosyn infectious disease services consulted Underlying history of hypertension Underlying history of prostate cancer Underlying history of gastroesophageal reflux disease Underlying history of osteoarthritis Underlying history of benign prostatic hypertrophy History of degenerative disc disease with previous history of back surgery Hospital course Alan Parra, is an 88-year-old male who presented to [facility] emergency room with a chief complaint of abdominal pain, patient describes a pressure sensation in the epigastric and right upper quadrant, he stated that his symptoms started about 1 year ago on and off , he was recently seen by Dr. Mitchell for similar complaint, MRCP was ordered and revealed large choledocholithiasis in the common bile duct with dilated biliary system, he was sent to emergency room when test results were available. He was evaluated in the emergency room vital examination on presentation revealed a temperature of 98 pulse 80 respiration 20 blood pressure 172/74 pulse ox 98% on room air Laboratory data revealed a white blood count of 8.06 hemoglobin 13.5 platelet count 107 BUN 36 creatinine 1.22 AST 77 ALT 183 alkaline phosphatase 621 Testing in the emergency room revealed KUB was done in the emergency room and did not reveal significant abnormality Patient was admitted to medical floor for further evaluation and treatment, gastroenterology consultation and surgical consultation were requested On 06/12/2024 patient was seen and examined on the medical floor he is alert and oriented x 3 in no apparent distress he is having severe shaking chills, he underwent ERCP earlier with sphincterectomy and removal of 2 stones from the common bile duct by Dr. Tumma, subsequently he returned to the floor and has been having chills with uncontrollable shaking, otherwise he denies any complaints, there is no headache or dizziness no chest pain no shortness of breath no cough no nausea or vomiting no abdominal pain no diarrhea and no urinary symptoms, at this time will obtain blood culture, will start on IV Zosyn and consult infectious disease On 06/13/2024 patient is alert and oriented x 3. Patient feels much improved today did have fever yesterday white count is increasing to 19. Patient was sta rted on IV Zosyn infectious disease services are following awaiting further recommendations from surgical services. Patient denies chest pain. Patient denies nausea vomiting or diarrhea. Patient denies any urinary burning or frequency. Current vital signs temp 97.4, heart rate 52, respiratory rate 16, blood pressure 118/56C On 06/14/2024 patient is alert and oriented x 3. White count improving. Patient has been cleared for discharge from surgery and GI services will follow-up outpatient. Antibiotics upon discharge per infectious disease. Follow-up breath. Patient denies nausea vomiting or diarrhea. Patient denies any urinary burning or frequency Patient Condition at Discharge: Stable Plan - Discharge Summary New Discharge Prescriptions: New cefuroxime axetiL [Ceftin] 500 mg PO BID #20 tab metroNIDAZOLE [Flagyl] 500 mg PO TID #30 tab Continue Aspirin [Adult Low Dose Aspirin EC] 81 mg PO DAILY Multivitamins, Thera [Multivitamin (formulary)] 1 tab PO DAILY Tamsulosin HCl [Flomax] 0.4 mg PO BID Famotidine [Pepcid] 40 mg PO BID Enalapril [Vasotec] 10 mg PO DAILY hydroCHLOROthiazide [Hydrodiuril] 25 mg PO DAILY Primidone [Mysoline] 250 mg PO HS Pantoprazole Sodium [Protonix] 40 mg PO BID-W/MEALS Discharge Medication List Aspirin [Adult Low Dose Aspirin EC] 81 mg PO DAILY 12/03/15 [History] Multivitamins, Thera [Multivitamin (formulary)] 1 tab PO DAILY 12/03/15 [History] Tamsulosin HCl [Flomax] 0.4 mg PO BID 12/03/15 [History] Famotidine [Pepcid] 40 mg PO BID 05/29/20 [History] Enalapril [Vasotec] 10 mg PO DAILY 06/11/24 [History] Pantoprazole Sodium [Protonix] 40 mg PO BID-W/MEALS 06/11/24 [History] Primidone [Mysoline] 250 mg PO HS 06/11/24 [History] hydroCHLOROthiazide [Hydrodiuril] 25 mg PO DAILY 06/11/24 [History] cefuroxime axetiL [Ceftin] 500 mg PO BID #20 tab 06/14/24 [Rx] metroNIDAZOLE [Flagyl] 500 mg PO TID #30 tab 06/14/24 [Rx] Follow up Appointment(s)/Referral(s): Danial Aparicio MD [Medical Doctor] - 1 Week Patience Mitchell MD [Primary Care Provider] - 1-2 days Leonie Lang NPC [REFERRING] - 06/19/24 11:45 am Ambulatory/Diagnostic Orders: Complete Blood Count w/diff [LAB.AMB] Time Frame: 3 Days, Location: None Selected Comprehensive Metabolic Panel [LAB.AMB] Time Frame: 3 Days, Location: None Selected Discharge Disposition: HOME SELF-CARE
--- NOTE | 2024-06-14 12:31 | P.PN ---
Subjective Progress Note Date: 06/14/24 SURGICAL PROGRESS NOTE CHIEF COMPLAINT: Choledocholithiasis HISTORY OF PRESENT ILLNESS: Patient is status post ERCP with 2 stones removed. Patient's abdominal pain has resolved. He denies any nausea or vomiting. Total bilirubin has trended down from 4.2-1.7. LFTs trended down. Patient scheduled for discharge today. Afebrile. WBC is down from 19-10.[address] Brito is covering for Dr. Aparicio PHYSICAL EXAM: VITAL SIGNS: Reviewed. GENERAL: Well-developed in no acute distress. ABDOMEN: Soft. Nondistended. Nontender NEUROLOGIC: Alert and oriented. Cranial nerves II through XII grossly intact. ASSESSMENT: 1. Choledocholithiasis status post ERCP with 2 stones removed. 2. Elevated LFTs 3. Epigastric abdominal pain PLAN: -Patient can be discharged from surgical standpoint -Recommend follow-up as outpatient to discuss options of cholecystectomy however at this time would lean towards observation -Antibiotics per ID service Physician Heel Sprayer First note has been reviewed by physician. Signing provider agrees with the documented findings, assessment, and plan of care. Objective - Vital Signs Vital signs: Vital Signs Temp 97.8 F 06/14/24 07:02 Pulse 66 06/14/24 07:02 Resp 16 06/14/24 07:02 BP 137/64 06/14/24 07:02 Pulse Ox 96 06/14/24 07:02 FiO2 Intake & Output 06/13/24 06/14/24 06/14/24 18:59 06:59 18:59 Other: Voiding Method Urinal Toilet Toilet Urinal # Voids 1 1 - Labs CBC & Chem 7: 06/14/24 03:59 06/14/24 03:59 Labs: Abnormal Lab Results - Last 24 Hours (Table) 06/14/24 06/14/24 Range/Units 03:59 03:59 WBC 10.35 H (4.50-10.00) 10*3/uL RBC 3.71 L (4.40-5.60) 10*6/uL Hgb 11.7 L (13.0-17.0) g/dL Hct 34.0 L (39.6-50.0) % Plt Count 80 L (140-440) 10*3/uL MPV 12.5 H (9.5-12.2) fL Neutrophils # 8.05 H (1.80-7.70) 10*3/uL Sodium 136 L (137-145) mmol/L Creatinine 1.58 H (0.66-1.25) mg/dL Glucose 100 H (74-99) mg/dL Total Bilirubin 1.7 H (0.2-1.3) mg/dL ALT 149 H (4-49) U/L Alkaline Phosphatase 416 H (38-126) U/L Total Protein 5.6 L (6.3-8.2) g/dL Albumin 2.9 L (3.5-5.0) g/dL Microbiology - Last 24 Hours (Table) 06/12/24 16:40 Blood Culture - Preliminary Blood
--- NOTE | 2024-06-14 15:57 | P.PN ---
Subjective Progress Note Date: 06/14/24 Principal diagnosis: Reason for follow-up is sepsis cholangitis/cholecystitis Patient is a 88-year-old male with a past medical history significant for Cancer, GERD/Reflux, Hearing Disorder / Deafness, Hypertension, Osteoarthritis (OA), Prostate Disorder has been brought into the hospital for evaluation of epigastric pain acute on chronic patient did have evidence of choledocholithiasis requiring ERCP and sphincterotomy. On today's evaluation that is 06/14/2024, the patient continues to be afebrile, the patient is on room air and breathing comfortably, the Pt denies having any chest pain or cough, the patient denies having any abdominal pain no vomiting or any diarrhea, mention feeling better wants to go home. Patient white count is down to 10.35, creatinine is 1.58 blood culture has been negative so far Objective - Vital Signs Vital signs: Vital Signs Temp 97.8 F 06/14/24 07:02 Pulse 66 06/14/24 07:02 Resp 16 06/14/24 07:02 BP 137/64 06/14/24 07:02 Pulse Ox 96 06/14/24 07:02 FiO2 Intake & Output 06/13/24 06/14/24 06/14/24 18:59 06:59 18:59 Other: Voiding Method Urinal Toilet Toilet Urinal # Voids 1 1 - Exam GENERAL DESCRIPTION: An elderly male lying in bed in no distress RESPIRATORY SYSTEM: Unlabored breathing , decreased breath sounds at bases HEART: S1 S2 regular rate and rhythm , ABDOMEN: Soft , no tenderness EXTREMITIES: No edema feet - Labs CBC & Chem 7: 06/14/24 03:59 06/14/24 03:59 Labs: Abnormal Lab Results - Last 24 Hours (Table) 06/14/24 06/14/24 Range/Units 03:59 03:59 WBC 10.35 H (4.50-10.00) 10*3/uL RBC 3.71 L (4.40-5.60) 10*6/uL Hgb 11.7 L (13.0-17.0) g/dL Hct 34.0 L (39.6-50.0) % Plt Count 80 L (140-440) 10*3/uL MPV 12.5 H (9.5-12.2) fL Neutrophils # 8.05 H (1.80-7.70) 10*3/uL Sodium 136 L (137-145) mmol/L Creatinine 1.58 H (0.66-1.25) mg/dL Glucose 100 H (74-99) mg/dL Total Bilirubin 1.7 H (0.2-1.3) mg/dL ALT 149 H (4-49) U/L Alkaline Phosphatase 416 H (38-126) U/L Total Protein 5.6 L (6.3-8.2) g/dL Albumin 2.9 L (3.5-5.0) g/dL Microbiology - Last 24 Hours (Table) 06/12/24 16:40 Blood Culture - Preliminary Blood Assessment and Plan (1) Cholecystitis Status: Acute Code(s): K81.9 - CHOLECYSTITIS, UNSPECIFIED SNOMED Code(s): 11996747 (2) Choledocholithiasis Status: Acute Code(s): K80.50 - CALCULUS OF BILE DUCT W/O CHOLANGITIS OR CHOLECYST W/O OBST SNOMED Code(s): 837922040 (3) Transaminitis Status: Acute Code(s): R74.01 - ELEVATION OF LEVELS OF LIVER TRANSAMINASE LEVELS SNOMED Code(s): 391959777 (4) Sepsis Status: Acute Code(s): A41.9 - SEPSIS, UNSPECIFIED ORGANISM SNOMED Code(s): 54802350 (5) Cholangitis Status: Acute Code(s): K83.09 - OTHER CHOLANGITIS SNOMED Code(s): 97021410 Plan: 1patient presented hospital abdominal pain in this patient who did have evidence of elevated liver enzymes and evidence of choledocholithiasis status post ERCP and sphincterotomy and extraction of 2 stones concerning for chol angitis with cholecystitis likely will need to cover for the enteric gram- negative pathogen 2-patient did have a fever as well as elevated white count meeting ready for SIRS source likely cholangitis in this patient who did have choledocholithiasis requiring ERCP and sphincterotomy,, blood culture has been negative so far fever has resolved feeling better wants to go home patient cleared for discharge we will suggest a 10-day course of oral Ceftin and Flagyl on discharge prescription sent to pharmacy discussed with CANARY RAISER for admitting team Dictation was produced using revoPTation software. please excuse any grammatical, word or spelling errors. Time with Patient: Less than 30
--- NOTE | 2024-06-25 21:09 | CDI ---
Documentation Clarification Form Date: From: Jarred Schmidt Phone: Admit Date: 06/11/2024 10:52:00 AM Patient Name: Alan Parra Visit Number: [id number] Discharge Date: 06/14/2024 01:15:00 PM ATTENTION: The Clinical Documentation Specialists (CDI) and [facility] Coding Staff appreciate your assistance in clarifying documentation. Please respond to the clarification below the line at the bottom and electronically sign. The CDI & [facility] Coding staff will review the response and follow-up if needed. Please note: Queries are made part of the Legal Health Record. If you have any questions, please contact the author of this message via ITS. Doctor/Provider: Lana Alejandro Sepsis documented 06/13-06/14/24, progress notes which may lack sufficient clinical evidence/support in the medical record. Additional clarification is requested. History/Risk Factors:patient underwent ERCP and stone extraction Calculus of bile duct with cholangitis on 06/12/24 Clinical Indicators:fever of 101 F and leukocytosis. 06/14 WBC 10.35 H (4.50- 10.00) 10*3/uL 06/13 WBC 19.58 H 10.35 H (4.50-10.00) X 10*3/uL WBC (4.50-10.00) X 10*3/uL 06/14 RBC 3.71 L (4.40-5.60) 10*6/uL 06/13 RBC 3.83 L (4.40-5.60) X 10*6/uL Treatment:IV antibiotics Please clarify if [insert diagnosis] is a valid diagnosis? [ ] No, [insert diagnosis] is ruled out [ ] Yes, [insert diagnosis] is present as evidence by (additional clinical support): [ ] Other (please specify diagnosis) [ xxx] Unable to determine MTDD
== END 2024-06-14 13:15 | disposition home or self-care (01) | DRG 408 ==
LOC: EC 08:36 → 4SSUR 10:52
PROVIDERS: ADMIT Internal Medicine; ATTEND Internal Medicine
PROC: 0F798ZZ Dilation of Common Bile Duct, Via Natural or Artificial Opening Endoscopic (ICD-10-PCS; 2024-06-12)
PROC: 0FPB80Z Removal of Drainage Device from Hepatobiliary Duct, Via Natural or Artificial Opening Endoscopic (ICD-10-PCS; 2024-06-12)
PROC: 0FC48ZZ Extirpation of Matter from Gallbladder, Via Natural or Artificial Opening Endoscopic (ICD-10-PCS; principal; 2024-06-12 13:00)
PROC: 0F7C8ZZ Dilation of Ampulla of Vater, Via Natural or Artificial Opening Endoscopic (ICD-10-PCS; 2024-06-12 13:00)
DX: K80.30 Calculus of bile duct with cholangitis, unspecified, without obstruction (principal); A41.9 Sepsis, unspecified organism; K76.89 Other specified diseases of liver; I10 Essential (primary) hypertension; K22.2 Esophageal obstruction; K21.00 Gastro-esophageal reflux disease with esophagitis, without bleeding; M19.90 Unspecified osteoarthritis, unspecified site; N40.0 Benign prostatic hyperplasia without lower urinary tract symptoms; K80.40 Calculus of bile duct with cholecystitis, unspecified, without obstruction; Z88.8 Allergy status to other drugs, medicaments and biological substances; G89.29 Other chronic pain; H91.93 Unspecified hearing loss, bilateral; Z79.82 Long term (current) use of aspirin; Z79.899 Other long term (current) drug therapy; R74.01 Elevation of levels of liver transaminase levels; Z82.49 Family history of ischemic heart disease and other diseases of the circulatory system; Z85.46 Personal history of malignant neoplasm of prostate; Z85.828 Personal history of other malignant neoplasm of skin; Z96.1 Presence of intraocular lens; Z96.651 Presence of right artificial knee joint; Z98.42 Cataract extraction status, left eye; Z98.41 Cataract extraction status, right eye; Y84.8 Other medical procedures as the cause of abnormal reaction of the patient, or of later complication, without mention of misadventure at the time of the procedure
CPT/HCPCS: 36415; 43262; 43264; 74018; 74330; 80053; 81003; 83690; 85025; 85610; 85730; 87040; 99285